=== PATIENT | male | born 1940 | race Caucasian/White ===

== ENCOUNTER → 2017-12-05 11:14 | Outpatient (BNVA) | payer MEDICARE, SELFPAY | PROVIDERS: Visit Provider Internal Medicine Cardiovascular Disease | DX: I48.2 Chronic atrial fibrillation (principal); I42.9 Cardiomyopathy, unspecified; I10 Essential (primary) hypertension; I34.0 Nonrheumatic mitral (valve) insufficiency; R06.02 Shortness of breath; Z79.01 Long term (current) use of anticoagulants; J44.9 Chronic obstructive pulmonary disease, unspecified; Z87.891 Personal history of nicotine dependence | CPT/HCPCS: 99214 ==

== ENCOUNTER → 2018-04-03 09:50 | Outpatient (BNVA) | payer MEDICARE, SELFPAY | PROVIDERS: Visit Provider Orthopaedic Surgery | DX: M17.0 Bilateral primary osteoarthritis of knee (principal); I10 Essential (primary) hypertension | CPT/HCPCS: 20610; 99211; 99213; J7325 ==

== ENCOUNTER → 2018-05-01 09:50 | Outpatient (BNVA) | payer MEDICARE, SELFPAY | PROVIDERS: PCP Family Medicine; Visit Provider Internal Medicine Cardiovascular Disease | DX: I48.91 Unspecified atrial fibrillation (principal); I42.9 Cardiomyopathy, unspecified; I12.9 Hypertensive chronic kidney disease with stage 1 through stage 4 chronic kidney disease, or unspecified chronic kidney disease; I34.0 Nonrheumatic mitral (valve) insufficiency; N18.9 Chronic kidney disease, unspecified; J44.9 Chronic obstructive pulmonary disease, unspecified; Z87.891 Personal history of nicotine dependence | CPT/HCPCS: 99213 ==

== ENCOUNTER → 2018-09-30 09:07 | Outpatient (BNVA) | payer MEDICARE, SELFPAY | PROVIDERS: PCP Family Medicine; Referring Provider Family Medicine; Visit Provider Orthopaedic Surgery | DX: M17.11 Unilateral primary osteoarthritis, right knee (principal); M17.12 Unilateral primary osteoarthritis, left knee | CPT/HCPCS: 20610; 99211; 99213; J7325 ==

== ENCOUNTER → 2018-12-04 08:43 | Outpatient (BNVA) | payer MEDICARE, SELFPAY | PROVIDERS: PCP Family Medicine; Referring Provider Family Medicine; Visit Provider Internal Medicine Cardiovascular Disease | DX: I48.2 Chronic atrial fibrillation (principal); I10 Essential (primary) hypertension; I34.0 Nonrheumatic mitral (valve) insufficiency; I42.9 Cardiomyopathy, unspecified; Z79.01 Long term (current) use of anticoagulants | CPT/HCPCS: 99214 ==

== ENCOUNTER → 2019-04-02 09:10 | Outpatient (BNVA) | payer MEDICARE, SELFPAY | PROVIDERS: PCP Family Medicine; Referring Provider Family Medicine; Visit Provider Student in an Organized Health Care Education/Training Program | DX: M17.12 Unilateral primary osteoarthritis, left knee (principal); M17.11 Unilateral primary osteoarthritis, right knee | CPT/HCPCS: 20610; 99214; J7325 ==

== ENCOUNTER → 2019-08-07 10:01 | Outpatient (BNVA) | payer MEDICARE, SELFPAY | PROVIDERS: PCP Family Medicine; Referring Provider Family Medicine; Visit Provider Internal Medicine Cardiovascular Disease | DX: I10 Essential (primary) hypertension (principal); I42.9 Cardiomyopathy, unspecified; E78.5 Hyperlipidemia, unspecified; I48.20 Chronic atrial fibrillation, unspecified | CPT/HCPCS: 99442; 99213 ==

== ENCOUNTER 2019-10-29 00:51 | Outpatient (CLI) | payer MEDICARE, SELFPAY ==
--- NOTE | 2019-10-29 08:15 | DI.US_ITS ---
EXAM: US LOWER EXTREMITY VENOUS LT CLINICAL HISTORY: LLE swelling, edema and pain, R/O DVT,R60.0. TECHNIQUE: Lower extremity venous ultrasound performed using grayscale, color-flow, and spectral Dop pler analysis. COMPARISON: No exams were available for comparison FINDINGS: The common femoral, femoral and popliteal veins demonstrate normal compressibility, augmentation, and color Doppler. The posterior tibial veins are patent. The saphenous vein appears free of thrombus. No Soto's cyst or hematoma is seen. IMPRESSION: No evidence of DVT. DATA REPOSITORY:
== END 2019-10-29 01:11 ==
PROVIDERS: PCP Family Medicine; Visit Provider Family Medicine
DX: R60.0 Localized edema (principal)
CPT/HCPCS: 93971

== ENCOUNTER → 2020-06-16 14:15 | Outpatient (BNVA) | payer MEDICARE, SELFPAY | PROVIDERS: PCP Family Medicine; Referring Provider Family Medicine; Visit Provider Internal Medicine Cardiovascular Disease | DX: I48.91 Unspecified atrial fibrillation (principal); Z79.01 Long term (current) use of anticoagulants; I42.9 Cardiomyopathy, unspecified; I34.0 Nonrheumatic mitral (valve) insufficiency | CPT/HCPCS: 99214 ==

== ENCOUNTER 2020-08-12 14:59 | Emergency (ER) | payer MEDICARE, SELFPAY ==
[2020-08-12] VITALS (20 sets, daily range): BP systolic 125–142; BP diastolic 80–93; PULSE 80–133; RESP 17–27; TEMP 36.7; O2SAT 96–97
--- NOTE | 2020-08-12 15:00 | RT.EKG_ITS ---
APPROVED REPORT Exam: Resting ECG Reason for Exam: afib, dizzy Patient Location: E HR:111 bpm ECG Measurements Heart Rate 111 AXIS CA [id number] P [id number] QRSd 144 QRS -44 QT 375 T 58 QTc 510 Conclusion Atrial fibrillation...? atrial activity Ventricular premature complex...V complex w/ short R-R interval RBBB and LAFB...QRSd >120mS, axis(-40,240)
--- NOTE | 2020-08-12 15:16 | ED.GENADUL_ITS ---
Discharge Plan Disposition Patient Disposition: HOME Condition: Stable Discharge Details Clinical Impression: Atrial fibrillation with RVR Primary Care Provider: Matthew Parsons ED Provider: Swapnil Edwards Home Meds and New Rx's Prescriptions: Continued triamcinolone acetonide 0.025 % cream 1 applic TP DAILY PRN (Reason: pruritis) Qty: 80 RF: 3 lisinopril 10 mg tablet 10 mg PO DAILY Qty: 90 RF: 3 oxycodone-acetaminophen 5-325 mg tablet 1 tab PO TID MDD 15 mg PRN (Reason: Pain) Qty: 84 RF: 0 oxycodone-acetaminophen 5-325 mg tablet 1 tab PO Q8H MDD 15 mg PRN (Reason: pain) Qty: 84 RF: 0 oxycodone-acetaminophen 5-325 mg tablet 1 tab PO Q8H MDD 15 mg PRN (Reason: pain) Qty: 84 RF: 0 oxycodone-acetaminophen 5-325 mg tablet 1 tab PO Q8H MDD 15 mg PRN (Reason: pain) Qty: 84 RF: 0 amoxicillin 875 mg tablet 875 mg PO BID 7 Days Qty: 14 RF: 0 docusate sodium [Dulcolax Stool Softener (dss)] 100 MG capsule 100 mg PO BID PRNRF: 0 carvedilol 25 mg tablet 25 mg PO BID Qty: 180 RF: 3 Eliquis 5 mg tablet 5 mg PO BID Qty: 180 RF: 3 torsemide 20 mg tablet 25 mg PO DAILY RF: 0 Discharge Instructions Instructions: A-fib (Atrial Fibrillation) (ED) Additional Instructions: your heart rate was high and you were given a medicine to lower it with good effect make sure you are staying hydrated follow up with your primary care provider within 1 week and take the antibiotics as prescribed if you feel more ill, have difficulty breathing or chest pain return to the emergency department Medical Decision Making 80 yo male with hx of afib on eliquis, htn, who comes in from his pcp's office with afib with rvr. He states he was seeing his pcp today because on Saturday he had episodes where he would become sweaty and shaky. He denies loss of consciousness and denies chest pain or shortness of breath. This lasted until Saturday and since then he states he was feeling fine and saw his pcp today for a check up after he had these symptoms and was found to be in afib with high rates so was sent here. He denies any pain or palpiations. He has noted increased redness and warmth to the left ear and on exam does have warm erythematous skin of the outer ear. NO drainage and no swelling of the mastoid area, was diagnosed with erysipelas by his pcp who prescribed amoxicillin and I agree with this diagnosis. He denies cough, abdomen pain, vomit. He appears well speaking fully, has normal lung sounds, soft abdomen and moving his extremities with good strength and CN II-XII are intact, he is noted to be in afib with rates ranging from 110-140 during my exam. Will try to control his heart rate with metoprolol as dilt causes him headaches. He has no chest pain or pressure so unlikely acs but will check troponin. No evidence of dvt on exam and no pleuritic pain or hypoxia so unlikely PE. xray unremarkable and labs show no significant abnormalities, probnp of 2000 but no clinical signs of chf and has been 1600 in the past, and is likely related to his afib with rvr. Mild leukocytosis of 13 but could be stress induced from the afib vs skin infection. He feels well and is requesting d/c. His heart rate is now in the 90's and is stable so feel outpatient management is reasonable. I did discuss return precautions with him and also advised to follow up with his pcp Differential Diagnosis Differential Diagnosis: afib with rvr, electrolyte abnormality, acs, erysipelas Medical Records Medical records reviewed: Yes I reviewed the patient's medical records. Imaging Data Radiologic Study: Attestation: I personally reviewed and interpreted this imaging study as follows: Imaging: X-Ray Lab Data Lab results reviewed: Yes I reviewed the patient's lab results. ECG Data Attestation: I personally reviewed and interpreted this ECG (s) as follows: Prior ECG tracings: available for review Interpretation: afib, rate of 111, qtc 510, rbbb, no acute st t wave ischemic findings HPI General Mode of arrival: ambulatory . Date/Time Provider Initiated Documentation: 08/12/20 15:02 . Limitations to Documentation: no limitations . Information obtained by: patient . History of Present Illness 80 year old M presents to the emergency department with the chief complaint of sent here because my heart rate is high, described as moderate, Patient reports no radiation. Patient started experiencing this unknown and it has been constant. No relieving factors improve symptom(s), No exacerbating factors reported . Patient notes denies chest pain and cough. Patient did receive the following treatments prior to arrival, none Related Data Home Medications Medication Instructions Recorded Confirmed docusate sodium [Dulcolax Stool 100 mg PO BID PRN tab-cap 07/02/13 08/12/20 Softener (dss)] lisinopril 10 mg tablet 10 mg PO DAILY #90 tab-cap 08/07/19 08/12/20 carvedilol 25 mg tablet 25 mg PO BID #180 tab 09/22/19 08/12/20 triamcinolone acetonide 0.025 % 1 applic TP DAILY PRN #80 gm 11/09/19 08/12/20 topical cream apixaban 5 mg tablet 5 mg PO BID #180 tab 05/05/20 08/12/20 oxycodone-acetaminophen 5 mg-325 1 tab PO Q8H PRN #84 tab MDD 15 mg 06/20/20 08/12/20 mg tablet oxycodone-acetaminophen 5 mg-325 1 tab PO Q8H PRN #84 tab MDD 15 mg 06/20/20 08/12/20 mg tablet oxycodone-acetaminophen 5 mg-325 1 tab PO Q8H PRN #84 tab MDD 15 mg 06/20/20 08/12/20 mg tablet oxycodone-acetaminophen 5 mg-325 1 tab PO TID PRN #84 tab MDD 15 mg 06/20/20 08/12/20 mg tablet amoxicillin 875 mg tablet 875 mg PO BID 7 Days #14 tab 08/12/20 08/12/20 torsemide 25 mg PO DAILY 08/12/20 08/12/20 Previous Rx's Medication Instructions Recorded lisinopril 10 mg tablet 10 mg PO DAILY #90 tab-cap 08/07/19 carvedilol 25 mg tablet 25 mg PO BID #180 tab 09/22/19 triamcinolone acetonide 0.025 % 1 applic TP DAILY PRN #80 gm 11/09/19 topical cream apixaban 5 mg tablet 5 mg PO BID #180 tab 05/05/20 oxycodone-acetaminophen 5 mg-325 1 tab PO Q8H PRN #84 tab MDD 15 mg 04/12/21 mg tablet oxycodone-acetaminophen 5 mg-325 1 tab PO Q8H PRN #84 tab MDD 15 mg 06/20/20 mg tablet oxycodone-acetaminophen 5 mg-325 1 tab PO Q8H PRN #84 tab MDD 15 mg 06/20/20 mg tablet oxycodone-acetaminophen 5 mg-325 1 tab PO TID PRN #84 tab MDD 15 mg 06/20/20 mg tablet amoxicillin 875 mg tablet 875 mg PO BID 7 Days #14 tab 08/12/20 Allergies Allergy/AdvReac Type Severity Reaction Status Date / Time celecoxib Allergy Unknown SKIN Verified 08/12/20 15:39 BREAKDOWN, RASH pantoprazole AdvReac Intermediate diarrhea Verified 08/12/20 15:39 diltiazem AdvReac Unknown HEADACHES Verified 08/12/20 15:39 Review of Systems All systems reviewed & are unremarkable except as noted in HPI and below Constitutional Constitutional: Denies chills, Denies fever(s) and Denies weakness Cardiovascular Cardiovascular: Denies chest pain and Denies dyspnea Respiratory Respiratory: Denies cough and Denies dyspnea Gastrointestinal Gastrointestinal: Denies abdominal pain, Denies nausea and Denies vomiting Musculoskeletal Musculoskeletal: Denies joint swelling Neurologic Neurologic: Denies weakness [facility] Medical History (Updated 08/12/20 @ 16:50 by Swapnil Edwards MD) Adjustment disorder, unspecified (06/25/16) Care Team: PCP & 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 Patient Goals: To keep on maintaining overall chronic pain for next year. Care Plan Given to Patient?: Yes. Treatment Goals: To continue to meet with PCP in regards to pain management and continue conversation with PCP about possibly tapering medication this year. Strengths/Resources:Spouse (Kimberly) and youngest son (Thai) Barriers/Challenges Assessments:None reported. Actions: To continue to take medications as prescribed and attend appts with PCP. Who's Responsible?: Pt takes medication by himself, but spouse picks up the medication for him at pharmacy. 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 Entation of both knees. The patient inquires whether or not a brace would be of help. I think a simple elastic knee sleeve such as a copper fit brace is most suitable to him. I would recommend an extra large size. He understands that he needs to avoid using the brace at nighttime so it does not cause swelling in the lower foot and leg Unspecified essential hypertension (03/11/93) 1993 Surgical History egd (02/29/16) CHRIS Saldivar Family History Mother , fluid in lungs at age 57. Diabetes Father , esophagus prob at age 84. No problems noted. Sister , CVA at age 70. No problems noted. Sister No problems noted. 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 Pets and animals: Yes Pets and animals: dog(s) What is your relationship status?: Panel score (0-1 are the most socially isolated patients): 1 What type of physical activity do you participate in: none Seatbelt use: always Water heater temp set <120 deg: Yes Working smoke detector in home: Yes Fire extinguisher in home: Yes Carbon monox detector in home: Yes Do you feel safe at home: Yes Exam Const General: no acute distress Orientation: alert HENMT Head: normal to inspection Ears: external ear abnormal General nose exam: external nose normal Mouth: moist mucous membranes Eyes General: appearance normal, both eyes and all related structures Neck Neck: normal visual inspection Resp Effort & Inspection: normal respiratory effort and able to speak in complete sentences Cardio Rate: tachycardic Skin General skin exam: no rashes or lesions noted Neuro General: patient alert and patient oriented x3 Extrem General: normal to inspection Psych Mental Status: mental status grossly normal Critical Care Time Critical Care Time Critical Care Time: Yes Total Critical Care Time: 45 (minutes) Attestation: time spenit initiating IV omid blockers in patient with afib with rvr, frequent reassessments and hemodynamic monitoring in patient with afib with rvr and potential to deteriorate at any time
[2020-08-12 15:27] LABS: Abs Immature Grans 0.07 10^3/uL (0.0-0.06); Absolute Basophil Count 0.07 10^3/uL (0.0-0.2); Absolute Eosinophil Count 0.22 10^3/uL (0.0-0.7); Basophils % 0.5; Eosinophils % 1.6; HCT 50.3 % (40.0-50.0); HGB 16.3 g/dL (13.5-17.5); Immature Grans % 0.5; MCH 30.8 pg (27.0-33.0); MCHC 32.4 % (32.0-36.0); MCV 94.9 fL (80-95); Monocytes % 11.6; Neutrophils % 76.8; Nucleated RBC 0 %; Platelet Count 203 10^3/uL (130-400); RDW 14.3 % (11.8-14.1); RDW-SD 50.4 fL; WBC 13.83 10^3/uL (4.4-10.8)
[2020-08-12 15:28] LABS: Absolute Lymphocyte Count 1.24 10^3/uL (1.2-3.4); Absolute Neutrophil Count 10.62 10^3/uL (1.2-6.7)
[2020-08-12] MEDS: Normal Saline 1,000 ML 1000 ML IV (15:38)
[2020-08-12] MEDS: Metoprolol 5 MG/5 ML VIAL IVP (15:39)
--- NOTE | 2020-08-12 15:45 | DI.RAD_ITS ---
Exam(s) XR PORTABLE CHEST AP EXAM: XR PORTABLE CHEST AP CLINICAL HISTORY: elevated heart rates TECHNIQUE: COMPARISON: CR CHEST 2 VIEWS PA,LAT from 12/28/2015 FINDINGS: The heart appears mildly enlarged although this may be due in part to the AP projection.. Lungs are clear and well expanded. No gross pleural effusion on this frontal film. IMPRESSION: No evidence of acute process, question mild cardiomegaly. RADIATION DOSE DELIVERED: Total DLP
[2020-08-12 15:48] LABS: ALT 22 U/L (16-63); AST 27 U/L (15-37); Albumin 3.6 g/dL (3.4-5.0); Alkaline Phosphatase 85 U/L (46-116); BUN 23 mg/dL (7-18); Bilirubin, Total 1.1 mg/dL (0.2-1.0); CREATININE 1.4 mg/dL (0.70-1.30); Calcium 9.4 mg/dL (8.5-10.1); Chloride 103 mmol/L (98-107); Estimated GFR 48.89 (mL/min/1.73m2); Glucose 100 mg/dL (74-106); NT-proBNP 2308 pg/mL (<300); Potassium 4.3 mmol/L (3.5-5.1); Sodium 142 mmol/L (136-145); TSH (W/Ref FT4) 1.47 uIU/mL (0.36-3.74); Total Protein 7.7 g/dL (6.4-8.2)
[2020-08-12 15:52] LABS: INR 1.1 (0.9-1.1); PTT Activated 29.6 sec (21.0-27.5); Prothrombin Time 11.1 sec (9.3-11.0)
[2020-08-12 16:02] LABS: Diff Comment Agrees w/ Instrument; RBC Morphology Normal
[2020-08-12] MEDS: Amoxicillin 875 MG TAB PO (16:03)
[2020-08-12 16:11] LABS: Troponin I < 0.05 ng/mL (<0.06)
--- NOTE | 2020-08-12 16:17 | DI.VRAD_ITS ---
PROCEDURE INFORMATION: Exam: XR Chest Exam date and time: 08/12/2020 3:59 PM Age: 80 years old Clinical indication: Other: Elevated heart rates TECHNIQUE: Imaging protocol: XR of the chest. Views: 1 view. COMPARISON: CR CHEST 2 VIEWS PA,LAT 12/28/2015 11:07 AM FINDINGS: Lungs: Unremarkable. No consolidation. Pleural spaces: Unremarkable. No pleural effusion. No pneumothorax. Heart/Mediastinum: Unremarkable. No cardiomegaly. Bones/joints: Degenerative changes in the spine. IMPRESSION: No acute finding. Dictated and Authenticated by: Kulwant Norris MD. Ordering:LAMONTE Kraft MD
[2020-08-15 11:02] LABS: Lyme Ab w Rflx to Lyme Confirm Negative (Negative)
[2020-08-16 03:58] LABS: Anaplasma phagocytophilum Negative (Negative); B. miyamotoi PCR Negative (Negative); Babesia divergens/MO-1 Negative (Negative); Babesia duncani Negative (Negative); Babesia microti Negative (Negative); Ehrlichia chaffeensis Negative (Negative); Ehrlichia ewingii/canis Negative (Negative); Ehrlichia muris eauclairensis Negative (Negative)
== END 2020-08-12 17:05 | disposition home or self-care (01) ==
PROVIDERS: Emergency Provider Emergency Medicine; PCP Family Medicine
DX: I48.91 Unspecified atrial fibrillation; I47.2 Ventricular tachycardia; Z79.01 Long term (current) use of anticoagulants
CPT/HCPCS: 36415; 80053; 87798; 93005; 96361; 96374; 99291; 71045; 83735; 83880; 84443; 84484; 85025; 85610; 85730; 86618; 93010

== ENCOUNTER → 2020-08-18 13:35 | Outpatient (BNVA) | payer MEDICARE, SELFPAY | PROVIDERS: PCP Family Medicine; Referring Provider Family Medicine; Visit Provider Internal Medicine Cardiovascular Disease | DX: I48.20 Chronic atrial fibrillation, unspecified (principal); I34.0 Nonrheumatic mitral (valve) insufficiency; I12.9 Hypertensive chronic kidney disease with stage 1 through stage 4 chronic kidney disease, or unspecified chronic kidney disease; I42.9 Cardiomyopathy, unspecified; N18.9 Chronic kidney disease, unspecified | CPT/HCPCS: 99214 ==

== ENCOUNTER 2020-11-29 00:04 | Outpatient (CLI) | payer MEDICARE, SELFPAY ==
--- NOTE | 2020-11-29 08:35 | DI.US_ITS ---
APPROVED REPORT EXAM: Comprehensive 2D, Doppler, and color-flow Echocardiogram Patient Location: Out-Patient Finisher Plate: Mayte Donato RDCS (AE) Indications: CARDIOMYOPATHY Other Information Study Quality: Adequate Conclusion Normal left ventricular wall thickness and chamber size. Estimated ejection fraction is 55%. There are no segmental wall motion abnormalities Normal right ventricular size and systolic function Both atria are normal in size The aortic valve is trileaflet without stenosis or regurgitation Mild mitral annular calcification. Trace mitral regurgitation Normal tricuspid valve with mild regurgitation. Estimated right ventricular systolic pressure is nor mal at 28 mmHg Normal pulmonic valve with trace regurgitation Dilated ascending aorta measuring 3.9 cm Wall motion Left Ventricle The left ventricle is normal size. The left ventricular systolic function is normal. The left ventric ular ejection fraction is within the normal range. There is normal left ventricular wall thickness. T here is normal LV segmental wall motion. There is no ventricular septal defect visualized. LVEF is 55 %. Right Ventricle The right ventricle is normal size. The right ventricular systolic function is normal. The RVSP is 27 .7 mmHg. Atria The left atrium size is normal. The right atrium size is normal. The interatrial septum is intact wit h no evidence for an atrial septal defect. Aortic Valve Aortic valve is trileaflet. There is no aortic valvular stenosis. No aortic regurgitation is present. Mitral Valve Mild mitral annular calcification. No evidence of mitral valve stenosis. Trace mitral regurgitation. Tricuspid Valve The tricuspid valve is normal in structure. There is no tricuspid valve stenosis. Mild tricuspid regu rgitation. Pulmonic Valve The pulmonary valve is normal in structure. There is no pulmonic valvular stenosis. Trace pulmonic re gurgitation. Great Vessels The aortic root is normal in size. The ascending aorta is moderately dilated. Aortic arch is not well visualized. IVC is normal in size and collapses >50% with inspiration. Pericardium There is no pericardial effusion. 2D Dimensions IVSD d PLAX 1.04 cm M: 0.6-1.2 LV Vol A2C d MOD 80.3 mL LVPW d PLAX 1.02 cm M: 0.6 - 1.2 LV Vol A4C d MOD 84.7 mL LVID d PLAX 4.53 cm M: 4.2 - 5.8 LA vol/ BSA A2C s A-L 23.1 mL/m2 LVDs 3.25 cm M: 2.5 - 4.0 LA vol/ BSA A4C s A-L 20.3 mL/m2 Ao Root d 3.33 cm M: 3.1 - 3.7 LA Vol/ BSA Biplane s A-L 23.9 mL/m2 RA Area A4C 19.83 cm2 LA Area A4C s MOD 16.92 cm2 RA Vol/ BSA A4C s A-L 23.6 mL/m2 LA Area A2C s MOD 19.94 cm2 Ao Asc Diam d 3.90 cm M: 2.6 - 3.4 LV EF A4C MOD 55.4 % LV EF Teichholz 54.6 % LV EF A2C MOD 55.6 % LVEF (Roberson's) 57.67 % M: 52 - 72 LV EF Biplane MOD 57.7 % LV Volume 62.90 mL M: 62 - 150 SV 50.10 mL LV Volume Index 28.20 mL/m2 M: 34 - 74 SV Index 22.45 mL/m2 LV Vol Biplane MOD 86.9 mL FS 28.15 % M-Mode TAPSE 1.90 cm (M/F) >1.7 LV Diastology MV E' medial 0.105 (>0.07 m/s) MV E Vmax 0.89 (0.4-1.3 m/s) LV E/e MED 8.45 (<14) MV E' lateral 0.109 (>0.1 m/s) LV E/e LAT 8.15 (<14) MV E/E' medial 8.47 MV E/E' lateral 8.16 Aortic Valve LVOT Area 3.11 cm2 AoV Area Vmax 1.99 cm2 LVOT Vmax 0.83 m/s AoV Area/ BSA (Vmax) 0.89 cm2/m2 LVOT Mean Gideon. 0.58 m/s RAE Mean Gideon. 1.81 cm2 LVOT Peak Grad 2.8 mmHg RAE Mean Gideon. Index 0.81 cm2/m2 LVOT Mean Grad 1.5 mmHg LVOT VTI 0.144 m LVOT Diam s 1.95 cm AoV Vmax 1.30 m/s Velocity Ratio 0.63 AoV Mean Gideon. 1.00 m/s AoV Peak Grad 6.8 mmHg LVOT SV 44.85 mL AoV Mean Grad 4.2 mmHg AoV VTI 0.265 m AoV Area VTI 1.69 cm2 AoV Area/ BSA (VTI) 0.76 cm/m2 Mitral Valve MV DT 169 (160-240 msec) MV PHT 49 msec MV Area PHT 4.48 cm2 MV VTI 0.225 m MV Area VTI 2.00 (4.0-6.0 cm2) Pulmonary Valve PV Vmax 0.71 (0.5-1.5 m/s) RVOT Peak Gr. 1.48 mmHg PV Peak Grad 2.0 mmHg RVOT Mean Gr. 0.65 mmHg PV Mean Grad 1.3 mmHg RVOT VTI 0.090 m PV VTI 0.148 m RVOT Vmax 0.61 m/s Tricuspid Valve TR Peak Grad 24.6 mmHg TR Vmax 2.48 m/s RA Pressure 3.00 mmHg RVSP (TR) 27.7 mmHg
== END 2020-11-29 00:24 ==
PROVIDERS: PCP Family Medicine; Visit Provider Internal Medicine Cardiovascular Disease
DX: I42.9 Cardiomyopathy, unspecified (principal); I77.812 Thoracoabdominal aortic ectasia
CPT/HCPCS: 36415; 80048; 80061; 93306; 84550

== ENCOUNTER 2020-11-29 01:16 | Outpatient (CLI) | payer MEDICARE, SELFPAY ==
[2020-11-29 09:36] LABS: Calculated LDL 91 mg/dL (<100); Cholesterol 155 mg/dL (<200); HDL Cholesterol 42 mg/dL (40-60); Triglyceride 112 mg/dL (<150)
[2020-11-29 10:47] LABS: Uric Acid 10.8 mg/dL (3.5-7.2)
[2020-11-29 11:46] LABS: BUN 15 mg/dL (7-18); CREATININE 1.4 mg/dL (0.70-1.30); Calcium 8.6 mg/dL (8.5-10.1); Chloride 104 mmol/L (98-107); Estimated GFR 48.89 (mL/min/1.73m2); Glucose 120 mg/dL (74-106); Sodium 143 mmol/L (136-145)
== END 2020-11-29 01:17 | disposition home or self-care (01) ==
LOC: LBO 01:16
PROVIDERS: PCP Family Medicine; Visit Provider Internal Medicine Cardiovascular Disease
DX: I10 Essential (primary) hypertension (principal); I48.91 Unspecified atrial fibrillation; I42.9 Cardiomyopathy, unspecified; I34.0 Nonrheumatic mitral (valve) insufficiency; M79.89 Other specified soft tissue disorders; N18.9 Chronic kidney disease, unspecified
CPT/HCPCS: 36415; 80048; 80061; 84550

== ENCOUNTER → 2020-12-20 08:55 | Outpatient (BNVA) | payer MEDICARE, SELFPAY | PROVIDERS: PCP Family Medicine; Referring Provider Family Medicine; Visit Provider Internal Medicine Cardiovascular Disease | DX: I48.21 Permanent atrial fibrillation (principal); I10 Essential (primary) hypertension; Z79.01 Long term (current) use of anticoagulants | CPT/HCPCS: 99213 ==

== ENCOUNTER → 2021-06-20 08:54 | Outpatient (BNVA) | payer MEDICARE, SELFPAY | PROVIDERS: PCP Family Medicine; Visit Provider Internal Medicine Cardiovascular Disease | DX: I48.21 Permanent atrial fibrillation (principal); I87.2 Venous insufficiency (chronic) (peripheral); Z79.01 Long term (current) use of anticoagulants; I10 Essential (primary) hypertension | CPT/HCPCS: 99214; 99213 ==

== ENCOUNTER → 2021-12-19 08:50 | Outpatient (BNVA) | payer MEDICARE, SELFPAY | PROVIDERS: PCP Family Medicine; Referring Provider Family Medicine; Visit Provider Internal Medicine Cardiovascular Disease | DX: I87.2 Venous insufficiency (chronic) (peripheral) (principal); I10 Essential (primary) hypertension; Z79.01 Long term (current) use of anticoagulants; I48.21 Permanent atrial fibrillation | CPT/HCPCS: 99214 ==

== ENCOUNTER 2022-07-24 08:15 | Outpatient (CLI) | payer MEDICARE, SELFPAY ==
--- NOTE | 2022-07-24 08:15 | RT.EKG_ITS ---
APPROVED REPORT Exam: Resting ECG Reason for Exam: afib Patient Location: O HR:135 bpm ECG Measurements Heart Rate 135 AXIS PA [id number] P [id number] QRSd 142 QRS -35 QT 372 T 25 QTc 558 Conclusion Atrial fibrillation...? atrial activity Low voltage Right bundle branch block...QRSd>120, terminal axis(90,270)
== END 2022-07-24 08:16 | disposition home or self-care (01) ==
LOC: DI.CARD 08:15
PROVIDERS: PCP Family Medicine; Visit Provider Internal Medicine Cardiovascular Disease
DX: I48.91 Unspecified atrial fibrillation (principal)
CPT/HCPCS: 93010

== ENCOUNTER → 2022-07-24 08:58 | Outpatient (BNVA) | payer MEDICARE, SELFPAY | PROVIDERS: PCP Family Medicine; Referring Provider Family Medicine; Visit Provider Internal Medicine Cardiovascular Disease | DX: I11.0 Hypertensive heart disease with heart failure (principal); I48.21 Permanent atrial fibrillation; I50.9 Heart failure, unspecified; I87.2 Venous insufficiency (chronic) (peripheral); Z79.01 Long term (current) use of anticoagulants | CPT/HCPCS: 93005; 99214 ==

== ENCOUNTER → 2022-07-31 10:16 | Outpatient (BNVA) | payer MEDICARE, SELFPAY | PROVIDERS: PCP Family Medicine; Referring Provider Family Medicine; Visit Provider Internal Medicine Cardiovascular Disease | DX: I11.0 Hypertensive heart disease with heart failure (principal); I50.9 Heart failure, unspecified; I42.9 Cardiomyopathy, unspecified; I48.91 Unspecified atrial fibrillation; Z79.01 Long term (current) use of anticoagulants | CPT/HCPCS: 99214 ==

== ENCOUNTER 2022-08-13 10:34 | Inpatient (IN) | payer MEDICARE, SELFPAY ==
[2022-08-13] VITALS (20 sets, daily range): BP systolic 102–142; BP diastolic 69–102; PULSE 71–94; RESP 7–21; TEMP 36.5–36.7; O2SAT 96–99
--- NOTE | 2022-08-13 | DI.US_ITS ---
Exam(s) US EXTREMITY VENOUS BI EXAM: US EXTREMITY VENOUS BI CLINICAL HISTORY: BLE edema, concern for DVT. TECHNIQUE: Bilateral lower extremity venous ultrasound performed using grayscale, color-flow, and sp ectral Doppler analysis. COMPARISON: No exams were available for comparison FINDINGS: The right common femoral, femoral and popliteal veins demonstrate normal compressibility, augmentatio n, and color Doppler. The posterior tibial and peroneal veins are patent. The saphenofemoral junctio n is unremarkable. There is no evidence of a Soto's cyst. There is edema seen in the soft tissues. The left common femoral, femoral and popliteal veins demonstrate normal compressibility, augmentation , and color Doppler. The posterior tibial and peroneal veins are patent. The saphenofemoral junction is unremarkable. There is no evidence of a Soto's cyst. There is edema seen in the soft tissues. IMPRESSION: 1. No evidence of a right lower extremity DVT. 2. No evidence of a left lower extremity DVT. DATA REPOSITORY:
--- NOTE | 2022-08-13 10:30 | RT.EKG_ITS ---
APPROVED REPORT Exam: Resting ECG Reason for Exam: SOB Patient Location: E HR:89 bpm ECG Measurements Heart Rate 89 AXIS OH [id number] P [id number] QRSd 153 QRS -31 QT 433 T 21 QTc 527 Conclusion Atrial fibrillation...V-rate 76-101, irreg A-activity Right bundle branch block...QRSd>120, terminal axis(90,270)
--- NOTE | 2022-08-13 10:58 | W.ED.GENAD ---
Discharge Plan Disposition Patient Disposition: Admit to [facility] Condition: Serious Discharge Details Clinical Impression: Anemia, MEDARDO (acute kidney injury), Atrial fibrillation, CHF exacerbation Admit Date/Time: 08/13/22 14:19 Admit Provider: Ivana Lucero Attending Provider: Ivana Lucero Primary Care Provider: Matthew Parsons ED Provider: Lou Panda Discharge Data Discharge Date/Time-TO BE ENTERED AT DEPARTURE: 08/13/22 15:02 Medical Decision Making Patient is a pleasant 82 year old male, accompanied by his , with [facility] signficant for CHF, A-fib, hypertension, cardiomyopathy, peripheral venous insufficiency, chronic anticoagulation, presenting today with chief complaint of lower extremity edema. He reports has been worsening for the past 2 weeks. He is chronically on torsemide and has gone from 20 mg twice daily to 30 mg twice daily. Despite this, has continued to have increasing swelling to so that now he is having difficulty putting on shoes or ambulating. He denies feeling short of breath at this time. He denies any chest pain. Denies any abdominal pain. Of note, patient's also reports that she did recently stop his Lyrica as he was having hallucinations. On exam, patient appears nontoxic. He is resting comfortably. No respiratory distress. His lungs are clear.Abdomen is benign. No appreciable ascites. He has significant lower extremity edema bilaterally with no calf tenderness. We will give IV Lasix. Has been taking 60 without relief, will give 80 IV Unable to find previous echo. EKG obtained, patient in A-fib with a right bundle which appears to be old. No acute ischemic etiology appreciated. I have low suspicion for ACS patient not been having any chest discomfort or exertional shortness of breath outside of his baseline. Patient denies any dietary changes but is driving this. Will obtain labs, in particular concerned about kidney and liver function. We will also obtain BNP for further evaluation of CHF exacerbation. Labs reviewed, patient is anemic with Hgb of 11.9, this is new since his last blood work in 2020 at which time it was 16.2. CMP signficant for BUN of 114, creatinine 10.8, up from 1.4 in 2020. BNP elevated at 7396. FINDINGS: The heart appears mildly enlarged although this may be due in part to the AP projection..? Lungs are clear and well expanded.? No gross pleural effusion on this frontal film. IMPRESSION: No evidence of acute process, question mild cardiomegaly. Concern for cardiorenal syndrome. Consulted with hospitalist regarding admission. Hospitalist concerned that patient needs a right and left-sided heart cath. Patient has not had any chest pain and troponin is negative. She advised transferring patient to higher level of care. Consulted with [facility] who advised beds are quite tight but I will be able to speak with cardiology. We will also consult with [facility]. [facility] is also full. Had ginette discussion with patietn and . He does not want to be transferred, does not even want to go to local higher level of care. He is aware that we do not have the necessary team's should he decompensate further with his cardiorenal syndrome. He would prefer to be DNR/DNI, but kept as comfortable is agreeable to admission here but goal is to be able to return home As possible.. He and his have not set up COLST forms but he is interested in doing so now. He does not want to be transferred to outside facility but is agreeable to staying here for medical management. Consulted with Dr. Parr, she advised she will consult. Encouraged to continue to monitor I&Os. Spoke with cardiology at [facility], she recommends conintuation of diuresis. Recomends echo while inpatient. Consulted with hospitalist who is already been in touch with Dr. Napoles. She agrees to admitting the patient. Patient has had 1900 out so far after the IV diuresis given when he first came in. Catheter in place to allow for easier BLU. Patient and in agreement with this plan. All his questions and concerns were addressed. HPI General Date/Time Provider Initiated Documentation: 08/13/22 10:35. Limitations to Documentation: no limitations. Information obtained by: patient, family (), RN notes reviewed and old records reviewed. History of Present Illness 82 year old M presents to the emergency department with the chief complaint of BLE edema, described as severe and similar to prior episodes (worse than typical but has had history of edema), Quality is described as other (denies any pain), and is localized to the lower extremity. Patient reports no radiation. Patient started experiencing this week(s) (2) and it has been constant. No relieving factors improve symptom(s), No exacerbating factors reported . Patient notes no other symptoms.; denies chest pain, cough, diaphoresis, fever/chills, malaise, nausea/vomiting, shortness of breath (reports some chronic exertional SOB but no acute change in this) and weakness. Patient did receive the following treatments prior to arrival, other (torsemide) Related Data Home Medications Medication Instructions Recorded Confirmed docusate sodium 100 mg capsule 100 mg PO BID PRN 07/02/13 08/13/22 (Dulcolax Stool Softener (docusate)) allopurinol 100 mg tablet 100 mg PO DAILY #90 tabs 05/16/21 08/13/22 prednisone 20 mg tablet 20 mg PO DAILY PRN gout #7 tabs 05/16/21 08/13/22 carvedilol 25 mg tablet 25 mg PO BID #180 tabs 08/31/21 08/13/22 tamsulosin 0.4 mg capsule 0.4 mg PO DAILY #30 caps 04/16/22 08/13/22 torsemide 20 mg tablet 20 mg PO BID #180 tabs 07/24/22 08/13/22 oxycodone-acetaminophen 5 mg-325 1 tab PO TID PRN pain #84 tabs 07/31/22 08/13/22 mg tablet torsemide 10 mg tablet 10 mg PO BID #30 tabs 08/02/22 08/13/22 apixaban 2.5 mg tablet (Eliquis) 2.5 mg PO BID #60 tabs 08/16/22 calcium carbonate 500 mg calcium 1.25 g PO BID #0 tabs 08/16/22 (1,250 mg) tablet (Oyster Shell Calcium 500) cyanocobalamin (vitamin B-12) 500 1,000 mcg PO DAILY #0 tabs 08/16/22 mcg tablet (Vitamin B-12) lidocaine 5 % topical patch 2 patch topical Q24H #30 ea 08/16/22 polyethylene glycol 3350 17 gram 17 g PO DAILY #30 ea 08/16/22 oral powder packet potassium chloride 20 mEq 40 meq PO BID #10 tabs 08/16/22 tablet,extended release(part/cryst) (Klor-Con M) Previous Rx's Medication Instructions Recorded allopurinol 100 mg tablet 100 mg PO DAILY #90 tabs 05/16/21 prednisone 20 mg tablet 20 mg PO DAILY PRN gout #7 tabs 05/16/21 carvedilol 25 mg tablet 25 mg PO BID #180 tabs 08/31/21 tamsulosin 0.4 mg capsule 0.4 mg PO DAILY #30 caps 04/16/22 torsemide 20 mg tablet 20 mg PO BID #180 tabs 07/24/22 oxycodone-acetaminophen 5 mg-325 1 tab PO TID PRN pain #84 tabs 07/31/22 mg tablet torsemide 10 mg tablet 10 mg PO BID #30 tabs 08/02/22 apixaban 2.5 mg tablet (Eliquis) 2.5 mg PO BID #60 tabs 08/16/22 calcium carbonate 500 mg calcium 1.25 g PO BID #0 tabs 08/16/22 (1,250 mg) tablet (Oyster Shell Calcium 500) cyanocobalamin (vitamin B-12) 500 1,000 mcg PO DAILY #0 tabs 08/16/22 mcg tablet (Vitamin B-12) lidocaine 5 % topical patch 2 patch topical Q24H #30 ea 08/16/22 polyethylene glycol 3350 17 gram 17 g PO DAILY #30 ea 08/16/22 oral powder packet potassium chloride 20 mEq 40 meq PO BID #10 tabs 08/16/22 tablet,extended release(part/cryst) (Klor-Con M) Allergies Allergy/AdvReac Type Severity Reaction Status Date / Time celecoxib Allergy Unknown SKIN Verified 08/13/22 10:43 BREAKDOWN, RASH pantoprazole AdvReac Intermediate diarrhea Verified 08/13/22 10:43 gabapentin AdvReac Mild Skin Rash Verified 08/13/22 10:43 diltiazem AdvReac Unknown HEADACHES Verified 08/13/22 10:43 General Stated Complaint: Chest Pain NATA: 3 Review of Systems Constitutional Constitutional: Reports as per HPI, Denies chills, Denies fever(s), Denies headache(s) and Denies poor appetite ENT Ears, Nose, Mouth, and Throat: Denies dizziness and Denies headache(s) Cardiovascular Cardiovascular: Reports as per HPI Respiratory Respiratory: Reports as per HPI, Denies cough, Denies pain on inspiration and Denies pain with cough Gastrointestinal Gastrointestinal: Reports as per HPI, Denies abdominal pain, Denies diarrhea, Denies nausea and Denies vomiting Genitourinary Genitourinary: Denies system reviewed and no additional complaints, except as documented (denies change in urinary habits) and Reports other (reports normal urine output, not increasing with medications) Musculoskeletal Musculoskeletal: Reports as per HPI and Denies back pain Integumentary/Breasts Skin/Breast: Reports as per HPI and Denies rash Neurologic Neurologic: Reports as per HPI, Denies dizziness and Denies headache(s) PFSH All Active Problems (Updated 08/18/22 @ 10:19 by DERICK Blackman) MEDARDO (acute kidney injury) (Acute) CHF exacerbation (Acute) Gross hematuria (Acute) Urinary retention (Acute) MEDARDO (acute kidney injury) (Acute) Hyperbilirubinemia (Acute) Hypocalcemia (Acute) Elevated uric acid in blood (Acute) High anion gap metabolic acidosis (Acute) Anemia (Chronic) Acute renal failure due to urinary obstruction (Acute) Post herpetic neuralgia (Acute) Toe swelling (Acute) Mitral regurgitation (Chronic) Hypertension (Chronic) Cardiomyopathy (Acute) Osteoarthritis of knee (Acute) Tobacco dependence syndrome (Acute 09/17/11) Unspecified essential hypertension (Chronic 03/11/93) 1993 Primary osteoarthritis of both knees (Chronic) Plan is to continue [place] supplem follow-up with me in 6 months unless there is some intercurrent worsening of his symptomatology. Entation of both knees. The patient inquires whether or not a brace would be of help. I think a simple elastic knee sleeve such as a copper fit brace is most suitable to him. I would recommend an extra large size. 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), sciatica 07, djd pain (also Dreisbach); no NSAID's due to GI bleed (2015) Osteoarthritis of knee (Chronic) LEFT PATRIZIA; INJ DREISBACH; DJD Hyperlipidemia (Chronic 11/09/00) risk 25% 11/2000, patrizia smoking, low HDL; goal LDL<100 Esophagitis determined by endoscopy (Chronic 03/09/16) EGD 02/29/16; Melena on Apixaban Chronic anticoagulation (Chronic 10/15/16) Apixaban Atrial fibrillation (Chronic 12/10/11) H/O EPISODES LIKELY FOR 2 YRS; EF 52%, NL TSH; Elzbieta; noted 12/10/11 office, Apixaban 2016; EF 60% 11/2014 ECHO Surgical History egd (02/29/16) [place] Yariel H/O umbilical hernia repair Hx of appendectomy S/P tonsillectomy Family History Mother , fluid in lungs at age 57. Heart disease CHF Sister Stroke Social History Smoking/Tobacco Use Status: Former Tobacco Use Pack-years: 120 Tobacco: How many years used: 64 Smoking risk assessment performed?: Yes Alcohol Intake: never Drug use: Never Adopted: No Caregiver/Support person: No Foster care: No Household members: spouse Housing: apartment Number of Children: 5 number of grandchildren: 11 Communication Needs: None Education Level: college Do you need help understanding health information?: Never current occupation: [employer] Pets and animals: Yes Pets and animals: dog(s) Sexually active: No Do you think of yourself as: straight/heterosexual Current gender identity: male What is your relationship status?: How often do you talk on the phone with friends or family?: three or more times per week How often do you get together with friends or relatives?: never How often do you attend gnosticism or congregational services?: decline to answer Do you belong to any clubs or organized social groups?: no Panel score (0-1 are the most socially isolated patients): 2 What type of physical activity do you participate in: none Seatbelt use: sometimes Drive intox or ride w/intox shuttle driver: No Water heater temp set <120 deg: Yes Working smoke detector in home: Yes Fire extinguisher in home: Yes Carbon monox detector in home: Yes Do you feel safe at home: Yes Exam Const General: cooperative, comfortable, no acute distress, well developed and ill appearing chronically Nutritional Appearance: well nourished, obese and edematous (BLE) Orientation: alert, awake and oriented x3 HENMT Head: normal to inspection Ears: hearing grossly normal bilaterally Mouth: moist mucous membranes Chest Chest: normal inspection of the chest, normal palpation of entire chest wall and no crepitus Resp Effort & Inspection: normal respiratory effort, able to speak in complete sentences and no respiratory distress Auscultation: clear to auscultation bilaterally, no rales, no rhonchi and no wheezes Cardio Rate: regular rate Rhythm: regular rhythm Heart Sounds: S1 normal and S2 normal GI Inspection: normal to inspection, no edema, non-distended and obesity Palpation: soft, no hepatosplenomegaly, not firm, no guarding, not rigid, nontender and No ascites Auscultation: normal bowel sounds Back/Spine/Pelvis Back: no CVA tenderness Thoracic/Lumbar Spine: thoracic and lumbar spine normal to inspection Skin General skin exam: no rashes or lesions noted Trauma: no lacerations or abrasions Neuro General: patient alert, patient awake and patient oriented x3 Cognition: normal cognition Speech: speech normal Gait: other (come in wheelchair, up to bed without assistance but short distance) Extrem General: normal to inspection, capillary refill normal, no calf tenderness and edema Laterality: bilateral Psych Appearance: grossly normal and well kempt Mental Status: mental status grossly normal Speech and Movement: speech and movement normal Course Vital Signs Vital signs: Vital Signs Temperature 36.7 C 08/13/22 10:38 Pulse 91 H 08/13/22 10:38 Respiratory Rate 20 08/13/22 10:38 Blood Pressure 135/87 08/13/22 10:38 Pulse Oximetry 98 08/13/22 10:38 Temperature 36.7 C 08/13/22 10:38 Temperature Source Skin 08/13/22 10:38 Pulse 91 H 08/13/22 10:38 Respiratory Rate 20 08/13/22 10:38 Blood Pressure 135/87 08/13/22 10:38 Blood Pressure Position Sitting 08/13/22 10:38 Pulse Oximetry 98 08/13/22 10:38 Oxygen Delivery Method Room Air 08/13/22 10:38 Oxygen Flow Rate 0 08/13/22 10:38 Pain Level 5 08/13/22 10:38
[2022-08-13 11:12] LABS: Abs Immature Grans 0.05 10^3/uL (0.0-0.06); Absolute Basophil Count 0.06 10^3/uL (0.0-0.2); Absolute Eosinophil Count 0.11 10^3/uL (0.0-0.7); Absolute Lymphocyte Count 0.79 10^3/uL (1.2-3.4); Basophils % 0.5; Eosinophils % 0.9; HCT 36.4 % (40.0-50.0); HGB 11.9 g/dL (13.5-17.5); Immature Grans % 0.4; Lymphocytes % 6.2; MCH 31.2 pg (27.0-33.0); MCHC 32.7 % (32.0-36.0); MCV 95 fL (80-95); Monocytes % 9.4; Neutrophils % 82.6; Platelet Count 149 10^3/uL (130-400); RBC 3.82 10^6/uL (4.36-5.78); RDW 14.8 % (11.8-14.1); WBC 12.75 10^3/uL (4.4-10.8)
[2022-08-13 11:13] LABS: Absolute Neutrophil Count 10.53 10^3/uL (1.2-6.7)
[2022-08-13] MEDS: Furosemide 100 MG/10 ML VIAL 80 MG IVP (11:30)
[2022-08-13 11:35] LABS: ALT 7 U/L (16-63); AST 7 U/L (15-37); Albumin 3.2 g/dL (3.4-5.0); Alkaline Phosphatase 58 U/L (46-116); Anion Gap 17.8 mmol/L (3-11); Bilirubin, Total 1.2 mg/dL (0.2-1.0); CO2 22.2 mmol/L (21.0-32.0); Calcium 7.9 mg/dL (8.5-10.1); Chloride 99 mmol/L (98-107); Estimated GFR 4.35 (mL/min/1.73m2); Glucose 122 mg/dL (74-106); Magnesium 1.8 mg/dL (1.8-2.4); NT-proBNP 7396 pg/mL (<300); Potassium 4.2 mmol/L (3.5-5.1); Sodium 139 mmol/L (136-145); Troponin I < 50 ng/L (<or=60)
[2022-08-13 11:42] LABS: BUN 114 mg/dL (7-18)
[2022-08-13 11:43] LABS: CREATININE 10.8 mg/dL (0.70-1.30)
--- NOTE | 2022-08-13 12:46 | DI.RAD_ITS ---
Exam(s) XR CHEST 2V PA LATERAL EXAM: XR CHEST 2V PA LATERAL CLINICAL HISTORY: SOB, hx CHF TECHNIQUE: 2D digital imaging was performed of the chest. Two images were obtained. PA and lateral views were obtained. COMPARISON: CR CHEST 2 VIEWS PA,LAT from 12/28/2015 CR,XR XR PORTABLE CHEST AP from 08/12/2020 FINDINGS: MEDIASTINUM: Normal. HEART: Cardiomegaly. PULMONARY VASCULATURE: Normal. LUNGS: Clear. PLEURAL SPACE: No pleural effusion or pneumothorax. BONE:Within normal limits for the patient's age. OTHER FINDINGS:Normal. IMPRESSION: No acute pulmonary findings. DATA REPOSITORY: RADIATION DOSE DELIVERED:
--- NOTE | 2022-08-13 13:52 | W.PULMCC ---
General Date of Service Date of service: 08/13/22 Time of Service: 13:52 Reason for Admission to ICU: Renal Failure Assessment and Plan Assessment and plan (1) Acute renal failure due to urinary obstruction: Status: Acute (2) Leukocytosis: Status: Acute (3) Congestive heart failure: Status: Chronic (4) Anemia: Status: Chronic (5) High anion gap metabolic acidosis: Status: Acute (6) Lethargy: Status: Acute (7) Elevated uric acid in blood: Status: Acute (8) Hypocalcemia: Status: Acute (9) Hyperbilirubinemia: Status: Acute (10) Atrial fibrillation with RVR: Status: Acute Assessment and plan: This is an 82 yo being admitted to the ICU for obstructive renal failure. He had 2000cc urine empty after catheterization. I do agree he needs renal imaging and a CT has been ordered. I also agree with urology consultation. Now that the obstruction has been resolved with a catheter, I suspect his GFR will significantly improve. Recommendations Pulmonary: No acute concerns Cardiac: CHF - diuresis for negative fluid balance - cardiac function on POCUS today appearance preserved Afib with RVR - on AC Renal: Obstructive renal failure - Goyal catheter - strict I/O's - CT renal imaging - urology consultation - close electrolyte monitoring Anion gap metabolic acidosis - likely due to uremia - measure lactate level Elevated uric acid - remeasure, h/o gout - continue allopurinol Hypocalcemia - remeasure tomorrow I&O: Intake & Output 08/10/22 08/11/22 08/12/22 08/13/22 23:59 23:59 23:59 23:59 Weight 111.13 kg Daily Fluid Goal:: negative 1 L GI Nutrition: OK for diet Hyperbilirubinemia - no transaminase elevation - continue to monitor Infectious Disease: No infection suspected Hematologic: Leukocytosis - reactive - infection not suspected Anemia - continue to monitor - no acute concern Neurologic: Lethargy - due to uremia, will continue to monitor Endocrine: No acute concerns Lines: PIV Goyal Prophylaxis: on Eliquis Code Status: DNR/DNI Subjective Critical and life-threatening events over the past 24 hours: This is an 82 yo who presented to the ED for chest pain, found to be in renal failure. I was called as hospitalist did not want to admit due to lack of HD services. Patient is DNR and refuses dialysis. I mentioned it would be appropriate to admit the patient as long as patient understood that without HD he may not survive. Upon further discussion with ED UOP was unknown and patient did not have Goyal, so I requested Goyal be placed. I then discussed the case with Dr. Lucero and we developed a plan if this was found to be cardiorenal. Dr. Lucero updated me shortly after this that a Goyal was placed and the patient was retaining 2000cc urine. Dr. Lucero states she would consult Urology. He states that he has not urinated in 2-3 days and has notices a significant amount of lethargy during this period as well. He states that his legs have been swelling moreso that usual in the last week as well. Exam Narrative Exam Narrative: Gen: NAD, normal respiratory effort, well-nourished HENT: PERRL, nasal turbinates normal without erythema or inflammation, moist oral mucosa, Mallampati 2, No LAD or JVD Chest: No respiratory distress, normal appearance of chest, clear to auscultation bilaterally, no crackles or wheezes, normal inspiratory effort Heart: regular rate and rhythym, no murmurs, rubs or gallops Abdomen: Non-distended, soft, non tender Extremities: No clubbing, 3+ edema up through hips, cyanosis, rashes Neuro: AAOx3 , non focal Psych: cooperative, appropriate mental affect Most Recent VS/Results Last Vital Signs Temp 36.7 C 08/13/22 10:38 Pulse 88 08/13/22 11:53 Resp 18 08/13/22 11:53 BP 142/88 H 08/13/22 11:53 Pulse Ox 99 08/13/22 11:53 Laboratory Results - last 24 hr 08/13/22 08/13/22 08/13/22 11:00 11:00 11:00 WBC 12.75 H RBC 3.82 L Hgb 11.9 L Hct 36.4 L MCV 95 MCH 31.2 MCHC 32.7 RDW 14.8 H Plt Count 149 MPV 10.0 Immature Gran % 0.4 Neutrophils % 82.6 Lymphocytes % 6.2 Monocytes % 9.4 Eosinophils % 0.9 Basophils % 0.5 Nucleated RBC % 0.0 Absolute Neutrophils 10.53 H Absolute Lymphocytes 0.79 L Absolute Monocytes 1.20 H Absolute Eosinophils 0.11 Absolute Basophils 0.06 Sodium 139 Potassium 4.2 Chloride 99 Carbon Dioxide 22.2 Anion Gap 17.8 H BUN 114 H* Creatinine 10.8 H* Est GFR (CKD-EPI 2020) 4.35 Glucose 122 H Calcium 7.9 L Magnesium 1.8 Total Bilirubin 1.2 H AST 7 L ALT 7 L Alkaline Phosphatase 58 Troponin I < 50 NT-Pro-B Natriuret Pep Cancelled 7396 H Total Protein 7.0 Albumin 3.2 L Review of Systems All systems reviewed & are unremarkable except as noted in HPI and below Time spent with patient Time spent in Critical Care: 75 Time spent in Critical care included: Performing procedures not included in c.c time, Coordination of care, Chart review, Documenting critically ill care, Time at immediate bedside, Discussing critically ill care with other medical staff and Discussing care with family members Pocus Exam Limited Cardiac Exam DATE OF EXAM: 08/13/22 TIME OF EXAM: 16:00 PROVIDER THAT PERFORMED THE STUDY: Liliya Armenta IS THIS A REPEAT EXAM DURING THIS ENCOUNTER: no REASON FOR EXAM: Congestive heart failure and Evaluation of LV function VISUALIZED STRUCTURES: four chambers, left atrium, left ventricle, LVOT, right atrium, right ventricle, aortic valve, mitral valve, Interventricular septum and IVC VIEW OBTAINED: Apical 4-Chamber, Parasternal long-axis, Parasternal short-axis and Subxiphoid PERTINENT FINDINGS/IMPRESSION: Pericardial effusion (anterior, trace vs fat pad) and Plethoric IVC; No LV dysfunction, No RV dilation and No RV dysfunction Exam complete
--- NOTE | 2022-08-13 14:00 | DI.CT_ITS ---
Exam(s) CT RENAL COLIC WO EXAM: CT RENAL COLIC WO CLINICAL HISTORY: cardiorenal syndrome. TECHNIQUE: Imaging Protocol: Axial computed tomography images with coronal and sagittal reformatted images were created and reviewed. COMPARISON: No exams were available for comparison FINDINGS: The examination is limited due to patient motion artifact. ABDOMEN: Lung Bases: Cardiomegaly. There is a small hiatal hernia. Gynecomastia. Liver: Normal density. No measurable mass. Gallbladder and biliary tract: Cholelithiasis. No biliary ductal dilatation. Pancreas: Normal density, no abnormal calcifications or inflammatory process. Spleen: Normal. Kidneys: Normal size, contour and axis.No evidence of nephrolithiasis. There is mild distension of t he left renal collecting system which may represent a recently passed stone. There are hypodense cor tical lesions on the right kidney. These may represent cysts but are indeterminate on this noncontra st examination. Adrenal glands: No mass is seen. Lymph nodes: Within normal limits. Abdominal Aorta: Abdominal portion non-dilated. Atherosclerosis. PELVIS: Bladder:There is a Goyal catheter in place. There is thickening of the wall of the urinary bladder. Air is seen within the urinary bladder likely reflecting recent catheterization. There is a 4 mm bl adder stone. Bowel: There is diverticulosis, but no evidence of acute diverticulitis. There is no evidence of bow el obstruction. There is mild thickening of the wall of the jejunum. No evidence of appendicitis. Peritoneal cavity: No ascites, collection or mesenteric inflammatory response. No free air. Reproductive organs: There is prostatomegaly. Bones: Within normal limits. Multilevel degenerative changes are present resulting in multilevel cent ral spinal canal and neural foraminal stenosis. The findings are most marked at the L4-5 and L5-S1 d isc levels. Soft Tissues: Bilateral fat containing inguinal hernias. IMPRESSION: 1. Mild thickening of the wall of the jejunum suggesting an enteritis. 2. Mild distention of the left ureter. No ureterolithiasis or nephrolithiasis is seen. This may ref lect a recently passed stone or noncalcified stone. Note is made of a stone within the urinary bladd er. 3. Diffuse thickening of the wall of the urinary bladder. Cystitis cannot be excluded. Underdistent ion or chronic bladder outlet obstruction should also be considered. 4. Prostatomegaly. 5. Colonic diverticulosis, but no evidence of acute diverticulitis. 6. Cholelithiasis. No biliary ductal dilatation. 7. Indeterminate hypodense right renal cortical nodules. Correlation with ultrasound or MRI is recom mended. 8. Findings were discussed with Mirtha Sales at 4:26 p.m. on 08/13/2022. RADIATION DOSE DELIVERED: 1,405.94mGy.cm Total DLP DATA REPOSITORY: All CT scans at this facility are submitted to the National Radiology Data Registry (NRDR) Dose Index Registry (DIR) with the [employer] (ACR). RADIATION OPTIMIZATION: All CT scans at this facility use at least one of these dose optimization te chniques: automated exposure control; mA and/or kV adjustment per patient size (includes targeted exa ms where dose is matched to clinical indication); or iterative reconstruction.
--- NOTE | 2022-08-13 14:44 | W.PM.HP.N ---
Date of service: 08/13/22 Time of Service: 14:49 Assessment and Plan Assessment and plan (1) MEDARDO (acute kidney injury): Status: Acute Assessment and plan: Suspect that this is multifactorial, but at a minimum it has an obstructive component due to urinary retention with >2,000 cc out upon insertion of the johns catheter. CT abdomen/plevis with diffuse thickening of the bladder wall c/w chronic bladder outlet obstruction. He does have L ureteral distention and evidence of a bladder stone. There is prostatomegaly. Urology consulted. Continue flomax. Obtain FEUrea. Will replete calcium. Does have hyperphosphatemia. K is 4.2, which is reassuring. Uric acid is elevated - on allopurinol. Will hold off of further diuresis at this time. Monitor Cr, I/Os, daily weights. I expect that a large portion of this MEDARDO will be reversible. (2) Urinary retention: Status: Acute Assessment and plan: As above. The patient is already on flomax. Continue. I suspect that his urinary retention may be related to obstruction/prostatomegaly - had an elevated PSA in 2010. But he is also on opioids for back pain which may in fact have been due to obstructive uropathy and the opioids may have been contributing to urinary retention, thus creating a self-fueling cycle. Also, he is constipated. I discussed the issue of opioids with the patient, and he is willing to come off of them. I will start to taper the oxycodone. I will also write him for a bowel regimen. It will be interesting to see if the patient's back pain resolves now that his urinary tract has been decompressed. (3) High anion gap metabolic acidosis: Status: Acute Assessment and plan: Suspect this is due to above and it should improve with treatment of MEDARDO. This is compensated. pH is 7.33. Lactate is 1.6. (4) Cardiomyopathy: Status: Acute Assessment and plan: Await echo. LVEF was preserved in 2020 with no evidence of R-sided failure per echo in our system. Qualifiers: Cardiomyopathy type: unspecified Qualified Code(s): I42.9 - Cardiomyopathy, unspecified (5) Congestive heart failure: Status: Chronic Assessment and plan: As above (6) Hyperbilirubinemia: Status: Acute Assessment and plan: Will trend. Suspect that some of this could be due to passive fluid congestion given the MEDARDO/obstructive uropathy. Will obtain hepatitis studies, however. (7) Hypocalcemia: Status: Acute Assessment and plan: Replete (8) Elevated uric acid in blood: Status: Acute Assessment and plan: Has a h/o gout. I doubt that this is due to tumor lysis syndrome. Continue allopurinol. (9) Leukocytosis: Status: Acute Assessment and plan: I am not sure if the patient has recently taken prednisone. Could be reactive due to acute urinary retention. He is certainly at risk of a UTI. Obtain a UA. Obtain a procalcitonin. Would not start antibiotics at this time. (10) Anemia: Status: Chronic Assessment and plan: Obtain anemia studies, including hematest, iron/TIBC, ferritin, B12/folate. (11) Atrial fibrillation: Status: Chronic Assessment and plan: Rate controlled. Adjust apixaban to renal dosing. Qualifiers: Atrial fibrillation type: permanent Qualified Code(s): I48.2 - Chronic atrial fibrillation (12) DVT prophylaxis: Status: Acute Assessment and plan: On therapeutic apixaban (13) Discharge planning issues: Status: Acute Assessment and plan: DNR/DNI Admit to the ICU with low threshold to downgrade to the medical surgical floor C/s palliative care C/s PT. Discussed with Dr Armenta. Total Critical Care Time 60 minutes. History of Present Illness History of Present Illness Chief Complaint: leg swelling, poor UOP Narrative: Mr Rain is an 82 year old male with PMHx of CHFpEF/cardiomyopathy (patient states he is unaware of this diagnosis), Afib on anticoagulation with eliquis, chronic lower extremity edema, CKD stage III (patient unaware of this diagnosis), HTN (unaware of diagnosis), gout, prostatomegaly (unaware of diagnosis), chronic lower back pain on oxycodone-acetaminophen, who presented to [facility] ED today c/o acute on chronic lower extremity edema, acutely worse over the last two weeks, despite his PCP increasing the torsemide dose from 20 mg BID to 30 mg BID. The patient has still be making urine at home, but reports that only dribbles came out, and for the last couple of weeks he had to start wearing a diaper became of episodes of incontinence. He states that he has gained 24 lbs in 2 weeks. He does admit that he was told to go to the ED when he saw Dr Lomeli in the office on 07/31/22 so that he could get intravenous diuretics, but at the time he chose not to go. He denies fevers, CP, SOB, orthopnea/PND, cough. His last BM was 4 days ago - this is not normal for him. The leg swelling became so severe that he has had a hard time bending down or walking. He has been weak. A couple of weeks ago he was noted to be hallucinating, but this stopped when his lyrica was discontinued. His son called his PCP's office due to progressively worsening swelling and the instructions were to bring Mr Rain to the hospital. On evaluation by the ED, the patient did not require supplemental oxygen. He was found to have severe bilateral pitting edema. His chemistry revealed a Cr of 10.8 with a carbon dioxide of 22.2 and a potassium of 4.2. His uric acid is 12.0. CXR showed no CHF. The patient verbalized that he did not want to be transferred to a different facility, was not interested in hemodialysis, and wanted to be DNR/DNI. A trial of IV furosemide was attempted and a johns catheter was ordered wiith >2,000 cc coming out upon insertion. A hospitalist admission was requested. Review of Systems All systems reviewed & are unremarkable except as noted in HPI and below PFSH All Active Problems (Updated 08/13/22 @ 17:13 by Ivana Lucero MD) Discharge planning issues (Acute) DVT prophylaxis (Acute) Urinary retention (Acute) MEDARDO (acute kidney injury) (Acute) Hyperbilirubinemia (Acute) Hypocalcemia (Acute) Elevated uric acid in blood (Acute) High anion gap metabolic acidosis (Acute) Anemia (Chronic) Leukocytosis (Acute) Acute renal failure due to urinary obstruction (Acute) Congestive heart failure (Chronic) Post herpetic neuralgia (Acute) Toe swelling (Acute) Atrial fibrillation with RVR (Acute) Mitral regurgitation (Chronic) Hypertension (Chronic) Cardiomyopathy (Acute) Osteoarthritis of knee (Acute) Tobacco dependence syndrome (Acute 09/17/11) Unspecified essential hypertension (Chronic 03/11/93) 1993 Primary osteoarthritis of both knees (Chronic) Plan is to continue Visco supplem follow-up with me in 6 months unless there is some intercurrent worsening of his symptomatology. Entation of both knees. The patient inquires whether or not a brace would be of help. I think a simple elastic knee sleeve such as a copper fit brace is most suitable to him. I would recommend an extra large size. 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), sciatica , djd pain (also Dreisbach); no NSAID's due to GI bleed (2015) Osteoarthritis of knee (Chronic) LEFT PATRIZIA; INJ DREISBACH; DJD Hyperlipidemia (Chronic 11/09/00) risk 25% 11/2000, patrizia smoking, low HDL; goal LDL<100 Esophagitis determined by endoscopy (Chronic 03/09/16) EGD 02/29/16; Melena on Apixaban Chronic anticoagulation (Chronic 10/15/16) Apixaban Atrial fibrillation (Chronic 12/10/11) H/O EPISODES LIKELY FOR 2 YRS; EF 52%, NL TSH; Heitzman; noted 12/10/11 office, Apixaban 2015; EF 60% 11/2014 ECHO Surgical History (Updated 08/13/22 @ 17:13 by Ivana Lucero MD) egd (02/29/16) [facility] Yariel H/O umbilical hernia repair Hx of appendectomy S/P tonsillectomy Family History (Updated 08/13/22 @ 17:12 by Ivana Lucero MD) Mother , fluid in lungs at age 57. 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 Pets and animals: Yes Pets and animals: dog(s) Sexually active: No Do you think of yourself as: straight/heterosexual Current gender identity: male What is your relationship status?: How often do you talk on the phone with friends or family?: three or more times per week How often do you get together with friends or relatives?: never How often do you attend worship or confucianism services?: decline to answer Do you belong to any clubs or organized social groups?: no Panel score (0-1 are the most socially isolated patients): 2 What type of physical activity do you participate in: none Seatbelt use: sometimes Drive intox or ride w/intox straddle truck driver: No Water heater temp set <120 deg: Yes Working smoke detector in home: Yes Fire extinguisher in home: Yes Carbon monox detector in home: Yes Do you feel safe at home: Yes Meds Allergies and Home Medications Allergies Allergy/AdvReac Type Severity Reaction Status Date / Time celecoxib Allergy Unknown SKIN Verified 08/13/22 10:43 BREAKDOWN, RASH pantoprazole AdvReac Intermediate diarrhea Verified 08/13/22 10:43 gabapentin AdvReac Mild Skin Rash Verified 08/13/22 10:43 diltiazem AdvReac Unknown HEADACHES Verified 08/13/22 10:43 Home Medications Medication Instructions Recorded Confirmed Type docusate sodium 100 mg capsule 100 mg PO BID PRN 07/02/13 08/13/22 History (Dulcolax Stool Softener (docusate)) allopurinol 100 mg tablet 100 mg PO DAILY #90 tabs 05/16/21 08/13/22 Rx prednisone 20 mg tablet 20 mg PO DAILY PRN gout #7 tabs 05/16/21 08/13/22 Rx apixaban 5 mg tablet (Eliquis) 5 mg PO BID #180 tabs 08/31/21 08/13/22 Rx carvedilol 25 mg tablet 25 mg PO BID #180 tabs 08/31/21 08/13/22 Rx tamsulosin 0.4 mg capsule 0.4 mg PO DAILY #30 caps 04/16/22 08/13/22 Rx torsemide 20 mg tablet 20 mg PO BID #180 tabs 07/24/22 08/13/22 Rx oxycodone-acetaminophen 5 mg-325 1 tab PO TID PRN pain #84 tabs 07/31/22 08/13/22 Rx mg tablet torsemide 10 mg tablet 10 mg PO BID #30 tabs 08/02/22 08/13/22 Rx Exam Narrative Exam Narrative: General: Pleasant elderly male who is A&Ox3, laying comfortably nearly flat in bed on RA, no dyspnea/tachypnea/cyanosis Neurological: A&Ox3, no focal deficits Psychiatric: Appropriate speech pattern/content, joking Skin: Visible skin intact HEENT: Atraumatic, normocephalic, EOMI, dry MM, clear oropharynx, no submandibular or cervical lymphadenopathy, no goiter or JVD Cardiovascular: irregularly irregular rhythm, no m/r/g Lungs: CTAB Gastrointestinal: soft, + flank edema, nontender Genitourinary: has a johns - large amounts of UOP Extremities: 3+ pitting edema B, symmetric, no c/c, I am unable to palpate pedal pulses due to edema. Results Imaging Additional studies: CXR: No acute pulmonary findings. Venous dopplers BLEs: 1. No evidence of a right lower extremity DVT. 2. No evidence of a left lower extremity DVT. CT renal: 1. Mild thickening of the wall of the jejunum suggesting an enteritis. 2. Mild distention of the left ureter.? No ureterolithiasis or nephrolithiasis is seen.? This may reflect a recently passed stone or noncalcified stone.? Note is made of a stone within the urinary bladder. 3. Diffuse thickening of the wall of the urinary bladder.? Cystitis cannot be excluded.? Underdistention or chronic bladder outlet obstruction should also be considered. 4. Prostatomegaly. 5. Colonic diverticulosis, but no evidence of acute diverticulitis. 6. Cholelithiasis.? No biliary ductal dilatation. 7. Indeterminate hypodense right renal cortical nodules.? Correlation with ultrasound or MRI is recommended. EKG: Afib, HR 89, RBBB (old) Labs 08/13/22 11:00 08/13/22 11:00 Labs: Laboratory Results - last 24 hr 08/13/22 08/13/22 08/13/22 11:00 11:00 11:00 WBC 12.75 H RBC 3.82 L Hgb 11.9 L Hct 36.4 L MCV 95 MCH 31.2 MCHC 32.7 RDW 14.8 H Plt Count 149 MPV 10.0 Immature Gran % 0.4 Neutrophils % 82.6 Lymphocytes % 6.2 Monocytes % 9.4 Eosinophils % 0.9 Basophils % 0.5 Nucleated RBC % 0.0 Absolute Neutrophils 10.53 H Absolute Lymphocytes 0.79 L Absolute Monocytes 1.20 H Absolute Eosinophils 0.11 Absolute Basophils 0.06 Sodium 139 Potassium 4.2 Chloride 99 Carbon Dioxide 22.2 Anion Gap 17.8 H BUN 114 H* Creatinine 10.8 H* Est GFR (CKD-EPI 2020) 4.35 Glucose 122 H Uric Acid Calcium 7.9 L Magnesium 1.8 Total Bilirubin 1.2 H AST 7 L ALT 7 L Alkaline Phosphatase 58 Troponin I < 50 NT-Pro-B Natriuret Pep Cancelled 7396 H Total Protein 7.0 Albumin 3.2 L 08/13/22 11:00 WBC RBC Hgb Hct MCV MCH MCHC RDW Plt Count MPV Immature Gran % Neutrophils % Lymphocytes % Monocytes % Eosinophils % Basophils % Nucleated RBC % Absolute Neutrophils Absolute Lymphocytes Absolute Monocytes Absolute Eosinophils Absolute Basophils Sodium Potassium Chloride Carbon Dioxide Anion Gap BUN Creatinine Est GFR (CKD-EPI 2020) Glucose Uric Acid 12.0 H Calcium Magnesium Total Bilirubin AST ALT Alkaline Phosphatase Troponin I NT-Pro-B Natriuret Pep Total Protein Albumin Last Vital Signs Temp 36.7 C 08/13/22 10:38 Pulse 82 08/13/22 14:36 Resp 18 08/13/22 14:36 BP 121/76 08/13/22 14:36 Pulse Ox 99 08/13/22 14:36 Time Spent Time spent with Patient: 55-74 minutes Time was spent: preparing to see the patient(eg.review tests), obtaining and/or reviewing separately otained hiistory, ordering medications,tests, procedures, referring, communicating with other health overnight caregiver, indepentently interpreting results, counseling the patient and care coordination
--- NOTE | 2022-08-13 15:23 | UCONE_ITS ---
Date of service: 08/13/22 Time of Service: 16:00 Assessment and Plan Assessment and plan (1) Urinary retention: Status: Acute (2) MEDARDO (acute kidney injury): Status: Acute Assessment and plan: If his elevated serum creatinine is related to back up from his full bladder, his serum creatinine should begin to improve simply with catheter drainage of the bladder. He does have a history of an elevated serum uric acid, so it is possible that he would have uric acid stones that potentially could cause some obstruction in the ureters. If we do find any evidence of a ureteral obstruction, we would need to discuss whether or not the patient was interested in having a ureteral stent placed to bypass any obstruction. It is certainly quite reasonable to start him on tamsulosin. It is somewhat concerning however that he had no severe abdominal discomfort even though he had 2 L of urine in his bladder. He tells me that he will not consider either surgery or CIC if he does not show that he can empty his bladder eventually. It would not surprise me if this gentleman will require some type of chronic indwelling catheter for the remainder of his life. History of Present Illness Narrative: This is an 82-year-old gentleman who has a history of congestive heart failure and atrial fibrillation. He presented to the emergency department today with worsening edema. He has been on chronic diuretics, but has been increasing his dosage of diuretics recently. He has not noticed any improvement in urine output but he has been producing some urine at home. He has had some mild abdominal and suprapubic discomfort, but he thought this symptom was related to shingles (which have been bothersome for about 10 months now). When he was seen in the emergency department, he was found to have a serum creatinine of 10.8 ng/dL. A Goyal catheter was placed and over 2 L of urine wer e obtained. His abdominal discomfort improved somewhat but not completely with placement of a catheter. He does have a history of gout but no previous history of kidney stones. He does not recall seeing any gross hematuria. He has not had any type of urologic surgery in the past. Review of Systems Narrative: No fevers or chills No vision change or dysphasia No diabetes or thyroid dysfunction No hemoptysis No chest pain No nausea, vomiting, hepatitis, ulcers, jaundice Post herpetic neuropathy. No seizures, strokes No bleeding disorders Hx gout (uses med prn) PFSH All Active Problems (Updated 08/14/22 @ 07:12 by Liliya Armenta MD) Gross hematuria (Acute) Lethargy (Acute) Discharge planning issues (Acute) DVT prophylaxis (Acute) Urinary retention (Acute) MEDARDO (acute kidney injury) (Acute) Hyperbilirubinemia (Acute) Hypocalcemia (Acute) Elevated uric acid in blood (Acute) High anion gap metabolic acidosis (Acute) Anemia (Chronic) Leukocytosis (Acute) Acute renal failure due to urinary obstruction (Acute) Congestive heart failure (Chronic) Post herpetic neuralgia (Acute) Toe swelling (Acute) Atrial fibrillation with RVR (Acute) Mitral regurgitation (Chronic) Hypertension (Chronic) Cardiomyopathy (Acute) Osteoarthritis of knee (Acute) Tobacco dependence syndrome (Acute 09/17/11) Unspecified essential hypertension (Chronic 03/11/93) 1993 Primary osteoarthritis of both knees (Chronic) Plan is to continue Visco supplem follow-up with me in 6 months unless there is some intercurrent worsening of his symptomatology. Entation of both knees. The patient inquires whether or not a brace would be of help. I think a simple elastic knee sleeve such as a copper fit brace is most suitable to him. I would recommend an extra large size. 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), sciatica 07, djd pain (also Dreisbach); no NSAID's due to GI bleed (2015) Osteoarthritis of knee (Chronic) LEFT PATRIZIA; INJ DREISBACH; DJD Hyperlipidemia (Chronic 11/09/00) risk 25% 11/2000, patrizia smoking, low HDL; goal LDL<100 Esophagitis determined by endoscopy (Chronic 03/09/16) EGD 02/29/16; Melena on Apixaban Chronic anticoagulation (Chronic 10/15/16) Apixaban Atrial fibrillation (Chronic 12/10/11) H/O EPISODES LIKELY FOR 2 YRS; EF 52%, NL TSH; Heitzman; noted 12/10/11 office, Apixaban 2015; EF 60% 11/2014 ECHO Surgical History (Updated 08/13/22 @ 17:13 by Ivana Lucero MD) egd (02/29/16) [facility] Yariel H/O umbilical hernia repair Hx of appendectomy S/P tonsillectomy Family History (Updated 08/13/22 @ 17:12 by Ivana Lucero MD) Mother , fluid in lungs at age 57. Heart disease CHF Sister Stroke Social History (Updated 08/13/22 @ 17:14 by Ivana Lucero MD) Smoking/Tobacco Use Status: Former Tobacco Use Pack-years: 120 Tobacco: How many years used: 64 Smoking risk assessment performed?: Yes Alcohol Intake: never Drug use: Never Adopted: No Caregiver/Support person: No Foster care: No Household members: spouse Housing: apartment Number of Children: 5 number of grandchildren: 11 Communication Needs: None Education Level: college Do you need help understanding health information?: Never current occupation: [employer] Pets and animals: Yes Pets and animals: dog(s) Sexually active: No Do you think of yourself as: straight/heterosexual Current gender identity: male What is your relationship status?: How often do you talk on the phone with friends or family?: three or more times per week How often do you get together with friends or relatives?: never How often do you attend restorationist or yarsani services?: decline to answer Do you belong to any clubs or organized social groups?: no Panel score (0-1 are the most socially isolated patients): 2 What type of physical activity do you participate in: none Seatbelt use: sometimes Drive intox or ride w/intox armored car guard and driver: No Water heater temp set <120 deg: Yes Working smoke detector in home: Yes Fire extinguisher in home: Yes Carbon monox detector in home: Yes Do you feel safe at home: Yes Exam Narrative Exam Narrative: He is a is not gentleman. He does not appear septic or toxic His vital signs are documented elsewhere His abdomen is obese but soft with no peritoneal signs A Goyal catheter is in place and is draining clear urine He is awake and alert A noncontrast CT of the abdomen and pelvis has been ordered, but has not yet been accomplished. I was able to review his renal ultrasound done back in 2016. It appears that the study was done when his serum creatinine went from 1.3 up to 1.79 mg/dL. At that time, there was no hydronephrosis and his residual bladder volume was just over 100 cc His serum creatinine on admission is 10.8 compared to 1.4 mg/dL in 2020. His serum uric acid is elevated Results Last Vital Signs Temp 36.7 C 08/13/22 10:38 Pulse 82 08/13/22 14:36 Resp 18 08/13/22 14:36 BP 121/76 08/13/22 14:36 Pulse Ox 99 08/13/22 14:36 Labs 08/14/22 05:45 08/14/22 05:45 Labs: Laboratory Results - last 24 hr 08/13/22 08/13/22 08/13/22 11:00 11:00 11:00 WBC 12.75 H RBC 3.82 L Hgb 11.9 L Hct 36.4 L MCV 95 MCH 31.2 MCHC 32.7 RDW 14.8 H Plt Count 149 MPV 10.0 Immature Gran % 0.4 Neutrophils % 82.6 Lymphocytes % 6.2 Monocytes % 9.4 Eosinophils % 0.9 Basophils % 0.5 Nucleated RBC % 0.0 Absolute Neutrophils 10.53 H Absolute Lymphocytes 0.79 L Absolute Monocytes 1.20 H Absolute Eosinophils 0.11 Absolute Basophils 0.06 Sodium 139 Potassium 4.2 Chloride 99 Carbon Dioxide 22.2 Anion Gap 17.8 H BUN 114 H* Creatinine 10.8 H* Est GFR (CKD-EPI 2020) 4.35 Glucose 122 H Uric Acid Calcium 7.9 L Magnesium 1.8 Total Bilirubin 1.2 H AST 7 L ALT 7 L Alkaline Phosphatase 58 Troponin I < 50 NT-Pro-B Natriuret Pep Cancelled 7396 H Total Protein 7.0 Albumin 3.2 L 08/13/22 11:00 WBC RBC Hgb Hct MCV MCH MCHC RDW Plt Count MPV Immature Gran % Neutrophils % Lymphocytes % Monocytes % Eosinophils % Basophils % Nucleated RBC % Absolute Neutrophils Absolute Lymphocytes Absolute Monocytes Absolute Eosinophils Absolute Basophils Sodium Potassium Chloride Carbon Dioxide Anion Gap BUN Creatinine Est GFR (CKD-EPI 2020) Glucose Uric Acid 12.0 H Calcium Magnesium Total Bilirubin AST ALT Alkaline Phosphatase Troponin I NT-Pro-B Natriuret Pep Total Protein Albumin
[2022-08-13 15:43] LABS: Lab Add On Test DONE
[2022-08-13 16:08] LABS: Creatine Kinase 59 U/L (39-308); FREE T4 1.33 ng/dL (0.76-1.46); Magnesium 1.9 mg/dL (1.8-2.4); TSH 0.93 uIU/mL (0.36-3.74)
[2022-08-13 16:12] LABS: PHOSPHORUS 9.7 mg/dL (2.6-4.7)
[2022-08-13 16:13] LABS: Procalcitonin 0.2 ng/mL
[2022-08-13 17:08] LABS: BE (Venous) -4 mmol/L (-2-3); HCO3 (Venous) 22 mmol/L (23-28); O2 Sat (Venous) 62 %; TCO2 (Venous) 21 mmol/L (24-29); pCO2 (Venous) 42 mmHg (41-51); pH (Venous) 7.33 (7.31-7.41); pO2 (Venous) 32 mmHg
[2022-08-13 17:09] LABS: Lactate 1.6 mmol/L (0.6-1.4)
[2022-08-13] MEDS: Docusate Sodium 100 MG/10 ML CUP PO (18:20)
[2022-08-13] MEDS: Polyethylene Glycol 3350 17 GM PACKET PO (18:20)
[2022-08-13] MEDS: Senna TAB 1 TAB PO (18:21)
[2022-08-13] MEDS: Bisacodyl 5 MG TABEC PO (18:21)
[2022-08-13 18:34] LABS: Bilirubin Negative (Negative); Blood Large (Negative); Clarity Cloudy (Clear); Glucose Negative (Negative); Ketones Negative (Negative); Leukocyte Esterase Negative (Negative); Nitrite Negative (Negative); Specific Gravity 1.015 (1.005-1.025); Urobilinogen 0.2 mg/dL (Up to 0.2)
[2022-08-13 18:43] LABS: Bacteria Rare HPF (Negative); C & S Indicated? C&S Done As Ordered; Casts Negative LPF (Negative); Crystals Negative HPF (Negative); Epithelial Cells Rare HPF (Negative); Mucus Negative (Negative); RBC >50 HPF (0-2); WBC 0-2 HPF (0-5)
[2022-08-13 19:15] LABS: Creatinine,Urine 25.54 mg/dL
[2022-08-13] MEDS: Carvedilol 25 MG TAB PO (21:22)
[2022-08-13] MEDS: Calcium Carbonate 1.25 GM TAB PO (21:22)
[2022-08-13] MEDS: Apixaban 2.5 MG TAB PO (21:23)
[2022-08-13] MEDS: Normal Saline Flush 10 ML SYR IVP (21:24)
[2022-08-14] VITALS (12 sets, daily range): BP systolic 91–123; BP diastolic 58–81; PULSE 77–111; RESP 8–18; TEMP 36.1–36.8; O2SAT 94–99
--- NOTE | 2022-08-14 06:52 | W.PULMCC ---
General Date of Service Date of service: 08/14/22 Time of Service: 06:52 Reason for Admission to ICU: Renal Failure Assessment and Plan Assessment and plan (1) Acute renal failure due to urinary obstruction: Status: Acute (2) Leukocytosis: Status: Acute (3) Congestive heart failure: Status: Chronic (4) Gross hematuria: Status: Acute (5) Anemia: Status: Chronic (6) High anion gap metabolic acidosis: Status: Acute (7) Lethargy: Status: Acute (8) Elevated uric acid in blood: Status: Acute (9) Hypocalcemia: Status: Acute (10) Hyperbilirubinemia: Status: Acute (11) Atrial fibrillation with RVR: Status: Acute Assessment and plan: This is an 82 yo being admitted to the ICU for obstructive renal failure. He had 2000cc urine empty after catheterization and in total has a UOP of 5000cc. His renal CT found mild distention of the left ureter with no stones seen and there was a stone seen within the urinary bladder. He was having back pain prior to his hospitalization which was worsened and may have reflected this stone that has now passed. This is not an explanation for his urinary retention unless there was a stone so big it obstructed the bladder outlet. He is ordered for an echo today. His labs are pending today, however I suspect a large improvement in his creatinine. He is having blood in the urine now, which is not overly surprising. Goyal management and plan to be managed by urology. I do not think he requires ICU level of care at this moment. Recommendations Pulmonary: No acute concerns Cardiac: CHF - diuresis for negative fluid balance - cardiac function on POCUS today appearance preserved - echo today Afib with RVR - on AC Renal: Gross hematuria - monitor urine and Hb - Goyal functioning this morning Obstructive renal failure - Goyal catheter - strict I/O's - CT renal imaging - stone in bladder, left ureter dilation - appreciate urology care - close electrolyte monitoring Anion gap metabolic acidosis - likely due to uremia Elevated uric acid - continue to monitor - continue allopurinol Hypocalcemia - continue to monitor I&O: Intake & Output 08/11/22 08/12/22 08/13/22 08/14/22 23:59 23:59 23:59 23:59 Intake Total Output Total 4450 / 4450 1200 / 1200 Balance -4440 / -4440 -1190 / -1190 Weight 111.13 kg Daily Fluid Goal:: even to negative 1 L GI Nutrition: OK for diet - cardio renal diet Hyperbilirubinemia - no transaminase elevation - continue to monitor Date of Last Bowel Movement: 08/09/22 Infectious Disease: No infection suspected Hematologic: Leukocytosis - reactive - infection not suspected Anemia - continue to monitor - no acute concern Neurologic: Lethargy - due to uremia, will continue to monitor - improved Endocrine: No acute concerns Lines: PIV Goyal Prophylaxis: on Eliquis Code Status: Resuscitation Status DNR/DNI Subjective Critical and life-threatening events over the past 24 hours: Jacob is feeling well, he states he is ready to go home. He now has blood tinged urine and RN reports blood clots present prior to the bag being changed. Goyal draining appropriately - no obstruction. Exam Narrative Exam Narrative: Gen: NAD, normal respiratory effort, well-nourished HENT: PERRL, nasal turbinates normal without erythema or inflammation, moist oral mucosa, Mallampati 2, No LAD or JVD Chest: No respiratory distress, normal appearance of chest, clear to auscultation bilaterally, no crackles or wheezes, normal inspiratory effort Heart: regular rate and rhythym, no murmurs, rubs or gallops Abdomen: Non-distended, soft, non tender Extremities: No clubbing, 3+ edema up through hips, cyanosis, rashes Neuro: AAOx3 , non focal Psych: cooperative, appropriate mental affect Most Recent VS/Results Last Vital Signs Temp 36.7 C 08/14/22 00:00 Pulse 86 08/14/22 04:00 Resp 12 08/14/22 04:00 BP 106/69 08/14/22 04:00 Pulse Ox 94 08/14/22 04:00 Laboratory Results - last 24 hr 08/13/22 08/13/22 08/13/22 11:00 11:00 11:00 WBC 12.75 H RBC 3.82 L Hgb 11.9 L Hct 36.4 L MCV 95 MCH 31.2 MCHC 32.7 RDW 14.8 H Plt Count 149 MPV 10.0 Immature Gran % 0.4 Neutrophils % 82.6 Lymphocytes % 6.2 Monocytes % 9.4 Eosinophils % 0.9 Basophils % 0.5 Nucleated RBC % 0.0 Absolute Neutrophils 10.53 H Absolute Lymphocytes 0.79 L Absolute Monocytes 1.20 H Absolute Eosinophils 0.11 Absolute Basophils 0.06 VBG pH VBG pCO2 VBG pO2 VBG HCO3 VBG Total CO2 VBG O2 Saturation VBG Base Excess VBG Lactate Sodium 139 Potassium 4.2 Chloride 99 Carbon Dioxide 22.2 Anion Gap 17.8 H BUN 114 H* Creatinine 10.8 H* Est GFR (CKD-EPI 2020) 4.35 Glucose 122 H Uric Acid Calcium 7.9 L Phosphorus Magnesium 1.8 Total Bilirubin 1.2 H AST 7 L ALT 7 L Alkaline Phosphatase 58 Creatine Kinase Troponin I < 50 NT-Pro-B Natriuret Pep Cancelled 7396 H Total Protein 7.0 Albumin 3.2 L Procalcitonin TSH Free T4 Urine Color Urine Clarity Urine pH Ur Specific [place] Urine Protein Urine Ketones Urine Blood Urine Nitrite Urine Bilirubin Urine Urobilinogen Ur Leukocyte Esterase Urine RBC Urine WBC Ur Epithelial Cells Urine Crystals Urine Bacteria Urine Casts Urine Mucus Ur Culture Indicated? Ur Random Creatinine Urine Glucose Add-On Test Request 08/13/22 08/13/22 08/13/22 11:00 11:00 11:00 WBC RBC Hgb Hct MCV MCH MCHC RDW Plt Count MPV Immature Gran % Neutrophils % Lymphocytes % Monocytes % Eosinophils % Basophils % Nucleated RBC % Absolute Neutrophils Absolute Lymphocytes Absolute Monocytes Absolute Eosinophils Absolute Basophils VBG pH VBG pCO2 VBG pO2 VBG HCO3 VBG Total CO2 VBG O2 Saturation VBG Base Excess VBG Lactate Sodium Potassium Chloride Carbon Dioxide Anion Gap BUN Creatinine Est GFR (CKD-EPI 2020) Glucose Uric Acid 12.0 H Calcium Phosphorus 9.7 H Magnesium 1.9 Total Bilirubin AST ALT Alkaline Phosphatase Creatine Kinase 59 Troponin I NT-Pro-B Natriuret Pep Total Protein Albumin Procalcitonin TSH 0.93 Free T4 1.33 Urine Color Urine Clarity Urine pH Ur Specific [place] Urine Protein Urine Ketones Urine Blood Urine Nitrite Urine Bilirubin Urine Urobilinogen Ur Leukocyte Esterase Urine RBC Urine WBC Ur Epithelial Cells Urine Crystals Urine Bacteria Urine Casts Urine Mucus Ur Culture Indicated? Ur Random Creatinine Urine Glucose Add-On Test Request DONE 08/13/22 08/13/22 08/13/22 11:00 17:00 17:00 WBC RBC Hgb Hct MCV MCH MCHC RDW Plt Count MPV Immature Gran % Neutrophils % Lymphocytes % Monocytes % Eosinophils % Basophils % Nucleated RBC % Absolute Neutrophils Absolute Lymphocytes Absolute Monocytes Absolute Eosinophils Absolute Basophils VBG pH 7.33 VBG pCO2 42 VBG pO2 32 VBG HCO3 22 L VBG Total CO2 21 L VBG O2 Saturation 62 VBG Base Excess -4 L VBG Lactate 1.6 H Sodium Potassium Chloride Carbon Dioxide Anion Gap BUN Creatinine Est GFR (CKD-EPI 2020) Glucose Uric Acid Calcium Phosphorus Magnesium Total Bilirubin AST ALT Alkaline Phosphatase Creatine Kinase Troponin I NT-Pro-B Natriuret Pep Total Protein Albumin Procalcitonin 0.2 TSH Free T4 Urine Color Urine Clarity Urine pH Ur Specific [place] Urine Protein Urine Ketones Urine Blood Urine Nitrite Urine Bilirubin Urine Urobilinogen Ur Leukocyte Esterase Urine RBC Urine WBC Ur Epithelial Cells Urine Crystals Urine Bacteria Urine Casts Urine Mucus Ur Culture Indicated? Ur Random Creatinine Urine Glucose Add-On Test Request 08/13/22 08/13/22 17:50 17:50 WBC RBC Hgb Hct MCV MCH MCHC RDW Plt Count MPV Immature Gran % Neutrophils % Lymphocytes % Monocytes % Eosinophils % Basophils % Nucleated RBC % Absolute Neutrophils Absolute Lymphocytes Absolute Monocytes Absolute Eosinophils Absolute Basophils VBG pH VBG pCO2 VBG pO2 VBG HCO3 VBG Total CO2 VBG O2 Saturation VBG Base Excess VBG Lactate Sodium Potassium Chloride Carbon Dioxide Anion Gap BUN Creatinine Est GFR (CKD-EPI 2020) Glucose Uric Acid Calcium Phosphorus Magnesium Total Bilirubin AST ALT Alkaline Phosphatase Creatine Kinase Troponin I NT-Pro-B Natriuret Pep Total Protein Albumin Procalcitonin TSH Free T4 Urine Color [place] Urine Clarity Cloudy Urine pH 7.0 Ur Specific [place] 1.015 Urine Protein 100 H Urine Ketones Negative Urine Blood Large H Urine Nitrite Negative Urine Bilirubin Negative Urine Urobilinogen 0.2 Ur Leukocyte Esterase Negative Urine RBC >50 H Urine WBC 0-2 Ur Epithelial Cells Rare Urine Crystals Negative Urine Bacteria Rare Urine Casts Negative Urine Mucus Negative Ur Culture Indicated? C&S Done As Ordered Ur Random Creatinine 25.54 Urine Glucose Negative Add-On Test Request Review of Systems All systems reviewed & are unremarkable except as noted in HPI and below Time spent with patient Time spent in Critical Care: 45 Time spent in Critical care included: Chart review, Documenting critically ill care, Time at immediate bedside and Discussing critically ill care with other medical staff
[2022-08-14 07:07] LABS: Abs Immature Grans 0.07 10^3/uL (0.0-0.06); Absolute Basophil Count 0.05 10^3/uL (0.0-0.2); Absolute Eosinophil Count 0.13 10^3/uL (0.0-0.7); Absolute Monocyte Count 0.96 10^3/uL (0.1-0.8); Absolute Neutrophil Count 7.35 10^3/uL (1.2-6.7); Basophils % 0.5; Eosinophils % 1.3; HGB 11.5 g/dL (13.5-17.5); Immature Grans % 0.7; Lymphocytes % 11.4; MCHC 32.9 % (32.0-36.0); MCV 94 fL (80-95); MPV 10.5 fL (8.0-11.0); Monocytes % 9.9; Neutrophils % 76.2; Platelet Count 157 10^3/uL (130-400); RBC 3.71 10^6/uL (4.36-5.78); RDW 14.6 % (11.8-14.1); RDW-SD 51.4 fL; WBC 9.66 10^3/uL (4.4-10.8)
[2022-08-14 07:30] LABS: Calcium 8.8 mg/dL (8.5-10.1); Chloride 101 mmol/L (98-107); Estimated GFR 4.89 (mL/min/1.73m2); Glucose 90 mg/dL (74-106); Magnesium 1.9 mg/dL (1.8-2.4); PHOSPHORUS 9.8 mg/dL (2.6-4.7); Sodium 143 mmol/L (136-145)
[2022-08-14 07:32] LABS: BUN 112 mg/dL (7-18); CREATININE 9.8 mg/dL (0.70-1.30)
--- NOTE | 2022-08-14 07:42 | W.PM.PROGNOT ---
Date of Service Date of service: 08/14/22 Time of Service: 07:43 Assessment and Plan Assessment and plan (1) Urinary retention: Status: Acute Assessment and plan: His serum and his decreased slightly. It will be interesting to see where his renal function stabilizes with catheter drainage The patient his reiterated that he is not interested in any type of surgical procedures nor will he even consider CIC if he is unable to void. I expect that we will likely need a chronic catheter in this gentleman. The presence of hematuria does not surprise me at this point in time. He is on Eliquis and his bladder had been quite distended when we initially placed his catheter. I do not see any evidence that we need continuous bladder irrigation at this time but I would simply hand irrigate the catheter on a as needed basis. Subjective Subjective Interval history since last seen: He has noticed that his edema seems to be improving. He is not having any discomfort related to his Goyal catheter Exam Narrative Exam Narrative: He does not appear septic or toxic His vital signs are documented elsewhere His urine is light pink His serum creatinine has decreased slightly from yesterday He is awake and alert Objective Last Vital Signs Temp 36.7 C 08/14/22 00:00 Pulse 86 08/14/22 04:00 Resp 12 08/14/22 04:00 BP 106/69 08/14/22 04:00 Pulse Ox 94 08/14/22 04:00 Laboratory Results - last 24 hr 08/13/22 08/13/22 08/13/22 11:00 11:00 11:00 WBC 12.75 H RBC 3.82 L Hgb 11.9 L Hct 36.4 L MCV 95 MCH 31.2 MCHC 32.7 RDW 14.8 H Plt Count 149 MPV 10.0 Immature Gran % 0.4 Neutrophils % 82.6 Lymphocytes % 6.2 Monocytes % 9.4 Eosinophils % 0.9 Basophils % 0.5 Nucleated RBC % 0.0 Absolute Neutrophils 10.53 H Absolute Lymphocytes 0.79 L Absolute Monocytes 1.20 H Absolute Eosinophils 0.11 Absolute Basophils 0.06 VBG pH VBG pCO2 VBG pO2 VBG HCO3 VBG Total CO2 VBG O2 Saturation VBG Base Excess VBG Lactate Sodium 139 Potassium 4.2 Chloride 99 Carbon Dioxide 22.2 Anion Gap 17.8 H BUN 114 H* Creatinine 10.8 H* Est GFR (CKD-EPI 2020) 4.35 Glucose 122 H Uric Acid Calcium 7.9 L Phosphorus Magnesium 1.8 Total Bilirubin 1.2 H AST 7 L ALT 7 L Alkaline Phosphatase 58 Creatine Kinase Troponin I < 50 NT-Pro-B Natriuret Pep Cancelled 7396 H Total Protein 7.0 Albumin 3.2 L Procalcitonin TSH Free T4 Urine Color Urine Clarity Urine pH Ur Specific [place] Urine Protein Urine Ketones Urine Blood Urine Nitrite Urine Bilirubin Urine Urobilinogen Ur Leukocyte Esterase Urine RBC Urine WBC Ur Epithelial Cells Urine Crystals Urine Bacteria Urine Casts Urine Mucus Ur Culture Indicated? Ur Random Creatinine Urine Glucose Add-On Test Request 08/13/22 08/13/22 08/13/22 11:00 11:00 11:00 WBC RBC Hgb Hct MCV MCH MCHC RDW Plt Count MPV Immature Gran % Neutrophils % Lymphocytes % Monocytes % Eosinophils % Basophils % Nucleated RBC % Absolute Neutrophils Absolute Lymphocytes Absolute Monocytes Absolute Eosinophils Absolute Basophils VBG pH VBG pCO2 VBG pO2 VBG HCO3 VBG Total CO2 VBG O2 Saturation VBG Base Excess VBG Lactate Sodium Potassium Chloride Carbon Dioxide Anion Gap BUN Creatinine Est GFR (CKD-EPI 2020) Glucose Uric Acid 12.0 H Calcium Phosphorus 9.7 H Magnesium 1.9 Total Bilirubin AST ALT Alkaline Phosphatase Creatine Kinase 59 Troponin I NT-Pro-B Natriuret Pep Total Protein Albumin Procalcitonin TSH 0.93 Free T4 1.33 Urine Color Urine Clarity Urine pH Ur Specific [place] Urine Protein Urine Ketones Urine Blood Urine Nitrite Urine Bilirubin Urine Urobilinogen Ur Leukocyte Esterase Urine RBC Urine WBC Ur Epithelial Cells Urine Crystals Urine Bacteria Urine Casts Urine Mucus Ur Culture Indicated? Ur Random Creatinine Urine Glucose Add-On Test Request DONE 08/13/22 08/13/22 08/13/22 11:00 17:00 17:00 WBC RBC Hgb Hct MCV MCH MCHC RDW Plt Count MPV Immature Gran % Neutrophils % Lymphocytes % Monocytes % Eosinophils % Basophils % Nucleated RBC % Absolute Neutrophils Absolute Lymphocytes Absolute Monocytes Absolute Eosinophils Absolute Basophils VBG pH 7.33 VBG pCO2 42 VBG pO2 32 VBG HCO3 22 L VBG Total CO2 21 L VBG O2 Saturation 62 VBG Base Excess -4 L VBG Lactate 1.6 H Sodium Potassium Chloride Carbon Dioxide Anion Gap BUN Creatinine Est GFR (CKD-EPI 2020) Glucose Uric Acid Calcium Phosphorus Magnesium Total Bilirubin AST ALT Alkaline Phosphatase Creatine Kinase Troponin I NT-Pro-B Natriuret Pep Total Protein Albumin Procalcitonin 0.2 TSH Free T4 Urine Color Urine Clarity Urine pH Ur Specific [place] Urine Protein Urine Ketones Urine Blood Urine Nitrite Urine Bilirubin Urine Urobilinogen Ur Leukocyte Esterase Urine RBC Urine WBC Ur Epithelial Cells Urine Crystals Urine Bacteria Urine Casts Urine Mucus Ur Culture Indicated? Ur Random Creatinine Urine Glucose Add-On Test Request 08/13/22 08/13/22 08/14/22 17:50 17:50 05:45 WBC RBC Hgb Hct MCV MCH MCHC RDW Plt Count MPV Immature Gran % Neutrophils % Lymphocytes % Monocytes % Eosinophils % Basophils % Nucleated RBC % Absolute Neutrophils Absolute Lymphocytes Absolute Monocytes Absolute Eosinophils Absolute Basophils VBG pH VBG pCO2 VBG pO2 VBG HCO3 VBG Total CO2 VBG O2 Saturation VBG Base Excess VBG Lactate Sodium 143 Potassium 4.0 Chloride 101 Carbon Dioxide 27.0 Anion Gap 15.0 H BUN 112 H* Creatinine 9.8 H* Est GFR (CKD-EPI 2020) 4.89 Glucose 90 Uric Acid Calcium 8.8 Phosphorus 9.8 H Magnesium 1.9 Total Bilirubin AST ALT Alkaline Phosphatase Creatine Kinase Troponin I NT-Pro-B Natriuret Pep Total Protein Albumin Procalcitonin TSH Free T4 Urine Color [place] Urine Clarity Cloudy Urine pH 7.0 Ur Specific [place] 1.015 Urine Protein 100 H Urine Ketones Negative Urine Blood Large H Urine Nitrite Negative Urine Bilirubin Negative Urine Urobilinogen 0.2 Ur Leukocyte Esterase Negative Urine RBC >50 H Urine WBC 0-2 Ur Epithelial Cells Rare Urine Crystals Negative Urine Bacteria Rare Urine Casts Negative Urine Mucus Negative Ur Culture Indicated? C&S Done As Ordered Ur Random Creatinine 25.54 Urine Glucose Negative Add-On Test Request 08/14/22 05:45 WBC 9.66 RBC 3.71 L Hgb 11.5 L Hct 35.0 L MCV 94 MCH 31.0 MCHC 32.9 RDW 14.6 H Plt Count 157 MPV 10.5 Immature Gran % 0.7 Neutrophils % 76.2 Lymphocytes % 11.4 Monocytes % 9.9 Eosinophils % 1.3 Basophils % 0.5 Nucleated RBC % 0.0 Absolute Neutrophils 7.35 H Absolute Lymphocytes 1.10 L Absolute Monocytes 0.96 H Absolute Eosinophils 0.13 Absolute Basophils 0.05 VBG pH VBG pCO2 VBG pO2 VBG HCO3 VBG Total CO2 VBG O2 Saturation VBG Base Excess VBG Lactate Sodium Potassium Chloride Carbon Dioxide Anion Gap BUN Creatinine Est GFR (CKD-EPI 2020) Glucose Uric Acid Calcium Phosphorus Magnesium Total Bilirubin AST ALT Alkaline Phosphatase Creatine Kinase Troponin I NT-Pro-B Natriuret Pep Total Protein Albumin Procalcitonin TSH Free T4 Urine Color Urine Clarity Urine pH Ur Specific [place] Urine Protein Urine Ketones Urine Blood Urine Nitrite Urine Bilirubin Urine Urobilinogen Ur Leukocyte Esterase Urine RBC Urine WBC Ur Epithelial Cells Urine Crystals Urine Bacteria Urine Casts Urine Mucus Ur Culture Indicated? Ur Random Creatinine Urine Glucose Add-On Test Request Time Spent with Patient Time Spent with Patient: <25 minutes Time was spent: preparing to see the patient(eg.review tests) and counseling the patient
[2022-08-14 07:48] LABS: Folate 6.9 ng/mL (8.6-20.0); Vitamin B12 265 pg/mL (193-986)
[2022-08-14 07:59] LABS: Ferritin 337 ng/mL (26-388)
--- NOTE | 2022-08-14 09:00 | DI.US_ITS ---
APPROVED REPORT EXAM: Comprehensive 2D, Doppler, and color-flow Echocardiogram Patient Location: In-Patient Room/Bed: 222 Record Changer: Kiran Harmon RDMS, RVT Indications: h/o CHF, suspected cardiorenal syndrome Other Information Study Quality: Adequate. Technically limited study due to body habitus. Conclusion Normal left ventricular wall thickness and chamber size. Ejection fraction is estimated at 50 to 55% without segmental wall motion abnormalities. Patient is in atrial fibrillation with [id number] va riation which confounds assessment Normal right ventricular size and systolic function Both atria are moderately dilated There are no structural valvular abnormalities Estimated right ventricular systolic pressure is 33 mmHg Mildly dilated ascending aorta 3.56 cm Wall motion Left Ventricle The left ventricle is normal size. Borderline systolic function There is normal left ventricular wall thickness. There are no segmental wall motion abnormalities There is no ventricular septal defect vi sualized. LVEF is 50-55%. Right Ventricle The right ventricle is normal size. The right ventricular systolic function is normal. The RVSP is 32 .6 mmHg. Atria Left atrium is moderately dilated. Right atrium is moderately dilated. The interatrial septum is inta ct with no evidence for an atrial septal defect. Aortic Valve The aortic valve is normal in structure. Aortic valve is trileaflet. There is no aortic valvular sten osis. No aortic regurgitation is present. Mitral Valve The mitral valve is normal in structure. No evidence of mitral valve stenosis. Trace mitral regurgit ation. Tricuspid Valve The tricuspid valve is normal in structure. There is no tricuspid valve stenosis. Mild tricuspid reg urgitation. Pulmonic Valve Pulmonic valve is grossly normal in structure. There is no pulmonic valvular stenosis. Trace pulmonic regurgitation. Great Vessels The aortic root is normal in size. The ascending aorta is mildly dilated. IVC is normal in size and c ollapses >50% with inspiration. Pericardium There is no pericardial effusion. 2D Dimensions IVSD d PLAX 0.67 cm M: 0.6-1.2 LV Vol A2C d MOD 69.6 mL LVPW d PLAX 0.68 cm M: 0.6 - 1.2 LV Vol A4C d MOD 100.8 mL LVID d PLAX 5.03 cm M: 4.2 - 5.8 LA vol/ BSA A4C s A-L 27.6 mL/m2 LVDs 3.95 cm M: 2.5 - 4.0 LA Area A4C s MOD 20.42 cm2 Ao Root d 2.95 cm M: 3.1 - 3.7 LV EF A4C MOD 44.7 % Ao Asc Diam d 3.56 cm M: 2.6 - 3.4 LV EF A2C MOD 45.5 % LV EF Teichholz 41.8 % LV EF Biplane MOD 47.1 % LVEF (Roberson's) 47.06 % M: 52 - 72 SV 40.98 mL LV Volume 62.87 mL M: 62 - 150 SV Index 18.20 mL/m2 LV Volume Index 27.94 mL/m2 M: 34 - 74 LV Vol Biplane MOD 87.1 mL FS 20.55 % M-Mode TAPSE 1.61 cm (M/F) >1.7 LV Diastology MV E' lateral 0.109 (>0.1 m/s) MV E Vmax 0.88 (0.4-1.3 m/s) LV E/e LAT 8.05 (<14) MV E/E' lateral 8.06 Aortic Valve LVOT Area 3.32 cm2 AoV Area Vmax 2.73 cm2 LVOT Vmax 1.01 m/s AoV Area/ BSA (Vmax) 1.21 cm2/m2 LVOT Mean Gideon. 0.71 m/s RAE Mean Gideon. 2.43 cm2 LVOT Peak Grad 4.1 mmHg RAE Mean Gideon. Index 1.08 cm2/m2 LVOT Mean Grad 2.2 mmHg LVOT VTI 0.191 m LVOT Diam s 2.05 cm AoV Vmax 1.23 m/s Velocity Ratio 0.82 AoV Mean Gideon. 0.97 m/s AoV Peak Grad 6.1 mmHg LVOT SV 63.43 mL AoV Mean Grad 4.0 mmHg AoV VTI 0.249 m AoV Area VTI 2.55 cm2 AoV Area/ BSA (VTI) 1.13 cm/m2 Mitral Valve MV DT 240 (160-240 msec) MV PHT 69 msec MV Area PHT 3.17 cm2 MV VTI 0.211 m MV Area VTI 3.01 (4.0-6.0 cm2) Pulmonary Valve PV Vmax 0.69 (0.5-1.5 m/s) RVOT Peak Gr. 1.69 mmHg PV Peak Grad 1.9 mmHg RVOT Mean Gr. 0.95 mmHg PV Mean Grad 1.4 mmHg RVOT VTI 0.120 m PV VTI 0.132 m RVOT Vmax 0.65 m/s Tricuspid Valve TR Peak Grad 29.5 mmHg TR Vmax 2.72 m/s RA Pressure 3.00 mmHg RVSP (TR) 32.6 mmHg
--- NOTE | 2022-08-14 09:15 | W.PM.PROGNOT ---
Date of Service Date of service: 08/14/22 Time of Service: 09:17 Assessment and Plan Assessment and plan (1) MEDARDO (acute kidney injury): Status: Acute Assessment and plan: Suspect that this is multifactorial, but at a minimum it has an obstructive component due to urinary retention with >2,000 cc out upon insertion of the johns catheter. Echo is getting done right now to evaluate the cardiorenal component. CT abdomen/pelvis with diffuse thickening of the bladder wall c/w chronic bladder outlet obstruction. He does have L ureteral distention and evidence of a bladder stone. There is prostatomegaly. Appreciate urology help: continue flomax. Await FEUrea. Continue supplementation of calcium. Does have hyperphosphatemia. No evidence of hyerkalemia. Continue allopurinol for hyperuricemia. Will continue to hold off of diuresis at this time - he is adequately diuresing on his own. Monitor Cr, I/Os, daily weights. I expect that a large portion of this MEDARDO will be reversible. (2) Gross hematuria: Status: Acute Assessment and plan: Evaluated by Dr Schwab. Recommends manual irrigation. Would continue anticoagulation unless hematuria worsens. (3) Urinary retention: Status: Acute Assessment and plan: As above. Continue flomax. Does have prostatomegaly. Decreased dose of percocet. Constipation has resolved - will need to stay on a bowel regimen. (4) High anion gap metabolic acidosis: Status: Acute Assessment and plan: Suspect this is due to above and it should improve with treatment of MEDARDO. This is compensated. Will continue to monitor serial chemistries. (5) Cardiomyopathy: Status: Acute Assessment and plan: Await echo. LVEF was preserved in 2020 with no evidence of R-sided failure per echo in our system. Qualifiers: Cardiomyopathy type: unspecified Qualified Code(s): I42.9 - Cardiomyopathy, unspecified (6) Congestive heart failure: Status: Chronic Assessment and plan: As above (7) Hyperbilirubinemia: Status: Acute Assessment and plan: Will trend. Today's total bili is 1.2, up from 1.1, but no evidence of transaminitis otherwise. Await hepatitis panel. This could be due to passive fluid congestion given the MEDARDO/obstructive uropathy. (8) Hypocalcemia: Status: Acute Assessment and plan: Replete (9) Elevated uric acid in blood: Status: Acute Assessment and plan: Has a h/o gout. I doubt that this is due to tumor lysis syndrome. Continue allopurinol. (10) Leukocytosis: Status: Resolved Assessment and plan: reactive due to acute urinary retention. No evidence of a UTI. Leucocytosis has resolved with decompression of the bladder. Would not start antibiotics at this time. (11) Anemia: Status: Chronic Assessment and plan: Has evidence of B12/folate deficiencies - replete. Does have hematuria right now, but not to the point of needing to stop anticoagulation. Monitor H/H. Await hematest. (12) Atrial fibrillation: Status: Chronic Assessment and plan: Rate controlled. Continue renally dosed apixaban. Will set holding parameters for coreg. Qualifiers: Atrial fibrillation type: permanent Qualified Code(s): I48.2 - Chronic atrial fibrillation (13) DVT prophylaxis: Status: Acute Assessment and plan: On therapeutic apixaban (14) Discharge planning issues: Status: Acute Assessment and plan: DNR/DNI Transfer out of the ICU. Await palliative care and PT consults. Discussed with Dr Armenta. Subjective Subjective Interval history since last seen: Mr Rain thinks he did not know yesterday where he was, but he is fully aware of where he is and what's going on now. He denies dizziness, CP, SOB. He is not nauseated. He just finally had a BM. He states his legs are less heavy and that he is able to move them better. He would like to go home. Hematuria was noted in his johns catheter. UOP: 4450 cc out prior to midnight; 1200 cc out since midnight. Exam Narrative Exam Narrative: General: Pleasant elderly male who is A&Ox3, laying comfortably nearly flat in bed on RA, no dyspnea/tachypnea/cyanosis. He does recall details of conversation from yesterday and remembers me. HEENT: EOMI, MMM Cardiovascular: irregularly irregular rhythm, no m/r/g Lungs: CTAB Gastrointestinal: soft, nontender, nondistended Genitourinary: has a johns - simon red urine in bag Extremities: 3+ pitting edema B, symmetric, I do not really see an improvement yet, no c/c, I am unable to palpate pedal pulses due to edema. Objective Last Vital Signs Temp 36.7 C 06/06/23 00:00 Pulse 86 08/14/22 04:00 Resp 12 08/14/22 04:00 BP 106/69 08/14/22 04:00 Pulse Ox 94 08/14/22 04:00 Laboratory Results - last 24 hr 08/13/22 08/13/22 08/13/22 11:00 11:00 11:00 WBC 12.75 H RBC 3.82 L Hgb 11.9 L Hct 36.4 L MCV 95 MCH 31.2 MCHC 32.7 RDW 14.8 H Plt Count 149 MPV 10.0 Immature Gran % 0.4 Neutrophils % 82.6 Lymphocytes % 6.2 Monocytes % 9.4 Eosinophils % 0.9 Basophils % 0.5 Nucleated RBC % 0.0 Absolute Neutrophils 10.53 H Absolute Lymphocytes 0.79 L Absolute Monocytes 1.20 H Absolute Eosinophils 0.11 Absolute Basophils 0.06 VBG pH VBG pCO2 VBG pO2 VBG HCO3 VBG Total CO2 VBG O2 Saturation VBG Base Excess VBG Lactate Sodium 139 Potassium 4.2 Chloride 99 Carbon Dioxide 22.2 Anion Gap 17.8 H BUN 114 H* Creatinine 10.8 H* Est GFR (CKD-EPI 2020) 4.35 Glucose 122 H Uric Acid Calcium 7.9 L Phosphorus Magnesium 1.8 Ferritin Total Bilirubin 1.2 H AST 7 L ALT 7 L Alkaline Phosphatase 58 Creatine Kinase Troponin I < 50 NT-Pro-B Natriuret Pep Cancelled 7396 H Total Protein 7.0 Albumin 3.2 L Vitamin B12 Folate Procalcitonin TSH Free T4 Urine Color Urine Clarity Urine pH Ur Specific [place] Urine Protein Urine Ketones Urine Blood Urine Nitrite Urine Bilirubin Urine Urobilinogen Ur Leukocyte Esterase Urine RBC Urine WBC Ur Epithelial Cells Urine Crystals Urine Bacteria Urine Casts Urine Mucus Ur Culture Indicated? Ur Random Creatinine Urine Glucose Add-On Test Request Patient ABO/Rh Antibody Screen 08/13/22 08/13/22 08/13/22 11:00 11:00 11:00 WBC RBC Hgb Hct MCV MCH MCHC RDW Plt Count MPV Immature Gran % Neutrophils % Lymphocytes % Monocytes % Eosinophils % Basophils % Nucleated RBC % Absolute Neutrophils Absolute Lymphocytes Absolute Monocytes Absolute Eosinophils Absolute Basophils VBG pH VBG pCO2 VBG pO2 VBG HCO3 VBG Total CO2 VBG O2 Saturation VBG Base Excess VBG Lactate Sodium Potassium Chloride Carbon Dioxide Anion Gap BUN Creatinine Est GFR (CKD-EPI 2020) Glucose Uric Acid 12.0 H Calcium Phosphorus 9.7 H Magnesium 1.9 Ferritin Total Bilirubin AST ALT Alkaline Phosphatase Creatine Kinase 59 Troponin I NT-Pro-B Natriuret Pep Total Protein Albumin Vitamin B12 Folate Procalcitonin TSH 0.93 Free T4 1.33 Urine Color Urine Clarity Urine pH Ur Specific [place] Urine Protein Urine Ketones Urine Blood Urine Nitrite Urine Bilirubin Urine Urobilinogen Ur Leukocyte Esterase Urine RBC Urine WBC Ur Epithelial Cells Urine Crystals Urine Bacteria Urine Casts Urine Mucus Ur Culture Indicated? Ur Random Creatinine Urine Glucose Add-On Test Request DONE Patient ABO/Rh Antibody Screen 08/13/22 08/13/22 08/13/22 11:00 17:00 17:00 WBC RBC Hgb Hct MCV MCH MCHC RDW Plt Count MPV Immature Gran % Neutrophils % Lymphocytes % Monocytes % Eosinophils % Basophils % Nucleated RBC % Absolute Neutrophils Absolute Lymphocytes Absolute Monocytes Absolute Eosinophils Absolute Basophils VBG pH 7.33 VBG pCO2 42 VBG pO2 32 VBG HCO3 22 L VBG Total CO2 21 L VBG O2 Saturation 62 VBG Base Excess -4 L VBG Lactate 1.6 H Sodium Potassium Chloride Carbon Dioxide Anion Gap BUN Creatinine Est GFR (CKD-EPI 2020) Glucose Uric Acid Calcium Phosphorus Magnesium Ferritin Total Bilirubin AST ALT Alkaline Phosphatase Creatine Kinase Troponin I NT-Pro-B Natriuret Pep Total Protein Albumin Vitamin B12 Folate Procalcitonin 0.2 TSH Free T4 Urine Color Urine Clarity Urine pH Ur Specific [place] Urine Protein Urine Ketones Urine Blood Urine Nitrite Urine Bilirubin Urine Urobilinogen Ur Leukocyte Esterase Urine RBC Urine WBC Ur Epithelial Cells Urine Crystals Urine Bacteria Urine Casts Urine Mucus Ur Culture Indicated? Ur Random Creatinine Urine Glucose Add-On Test Request Patient ABO/Rh Antibody Screen 08/13/22 08/13/22 08/14/22 17:50 17:50 05:45 WBC RBC Hgb Hct MCV MCH MCHC RDW Plt Count MPV Immature Gran % Neutrophils % Lymphocytes % Monocytes % Eosinophils % Basophils % Nucleated RBC % Absolute Neutrophils Absolute Lymphocytes Absolute Monocytes Absolute Eosinophils Absolute Basophils VBG pH VBG pCO2 VBG pO2 VBG HCO3 VBG Total CO2 VBG O2 Saturation VBG Base Excess VBG Lactate Sodium 143 Potassium 4.0 Chloride 101 Carbon Dioxide 27.0 Anion Gap 15.0 H BUN 112 H* Creatinine 9.8 H* Est GFR (CKD-EPI 2020) 4.89 Glucose 90 Uric Acid Calcium 8.8 Phosphorus 9.8 H Magnesium 1.9 Ferritin 337 Total Bilirubin AST ALT Alkaline Phosphatase Creatine Kinase Troponin I NT-Pro-B Natriuret Pep Total Protein Albumin Vitamin B12 Folate Procalcitonin TSH Free T4 Urine Color [place] Urine Clarity Cloudy Urine pH 7.0 Ur Specific [place] 1.015 Urine Protein 100 H Urine Ketones Negative Urine Blood Large H Urine Nitrite Negative Urine Bilirubin Negative Urine Urobilinogen 0.2 Ur Leukocyte Esterase Negative Urine RBC >50 H Urine WBC 0-2 Ur Epithelial Cells Rare Urine Crystals Negative Urine Bacteria Rare Urine Casts Negative Urine Mucus Negative Ur Culture Indicated? C&S Done As Ordered Ur Random Creatinine 25.54 Urine Glucose Negative Add-On Test Request Patient ABO/Rh Antibody Screen 08/14/22 08/14/22 08/14/22 05:45 05:45 06:55 WBC 9.66 RBC 3.71 L Hgb 11.5 L Hct 35.0 L MCV 94 MCH 31.0 MCHC 32.9 RDW 14.6 H Plt Count 157 MPV 10.5 Immature Gran % 0.7 Neutrophils % 76.2 Lymphocytes % 11.4 Monocytes % 9.9 Eosinophils % 1.3 Basophils % 0.5 Nucleated RBC % 0.0 Absolute Neutrophils 7.35 H Absolute Lymphocytes 1.10 L Absolute Monocytes 0.96 H Absolute Eosinophils 0.13 Absolute Basophils 0.05 VBG pH VBG pCO2 VBG pO2 VBG HCO3 VBG Total CO2 VBG O2 Saturation VBG Base Excess VBG Lactate Sodium Potassium Chloride Carbon Dioxide Anion Gap BUN Creatinine Est GFR (CKD-EPI 2020) Glucose Uric Acid Calcium Phosphorus Magnesium Ferritin Total Bilirubin AST ALT Alkaline Phosphatase Creatine Kinase Troponin I NT-Pro-B Natriuret Pep Total Protein Albumin Vitamin B12 265 Folate 6.9 L Procalcitonin TSH Free T4 Urine Color Urine Clarity Urine pH Ur Specific [place] Urine Protein Urine Ketones Urine Blood Urine Nitrite Urine Bilirubin Urine Urobilinogen Ur Leukocyte Esterase Urine RBC Urine WBC Ur Epithelial Cells Urine Crystals Urine Bacteria Urine Casts Urine Mucus Ur Culture Indicated? Ur Random Creatinine Urine Glucose Add-On Test Request Patient ABO/Rh O Positive Antibody Screen NEGATIVE Time Spent with Patient Time Spent with Patient: 35-49 minutes Time was spent: preparing to see the patient(eg.review tests), obtaining and/or reviewing separately otained hiistory, ordering medications,tests, procedures, referring, communicating with other health caretaker resort, indepentently interpreting results, counseling the patient and care coordination
--- NOTE | 2022-08-14 10:37 | IN_ITS ---
Date of service: 08/14/22 Time of Service: 10:07 PT Notes Visit Reasons: MEDARDO, Likely Acute Cardiorenal Syndrome Physical Therapy Inpatient Initial Evaluation Date: 08/14/2022 Referring Doctor: Ivana Lucero MD PT Orders: PT CONSULT: Limited ability Precautions: Fall. Standard. Activity as tolerated. Patient Profile/Admitting Diagnosis: Jacob is an 82-year-old male who was admitted to the ED on 08/13/2022 due to bilateral lower extremity edema that was worsening over the past 2 weeks. Patient is admitted for management of acute kidney injury, urinary retention, high anion gap metabolic acidosis, cardiomyopathy hyperbilirubinemia, elevated uric acid in blood, leukocytosis, anemia, and atrial fibrillation. PMHX: All Active Problems?(Updated 08/13/22 @ 17:13 by Ivana Lucero MD) Discharge planning issues (Acute) DVT prophylaxis (Acute) Urinary retention (Acute) MEDARDO (acute kidney injury) (Acute) Hyperbilirubinemia (Acute) Hypocalcemia (Acute) Elevated uric acid in blood (Acute) High anion gap metabolic acidosis (Acute) Anemia (Chronic) Leukocytosis (Acute) Acute renal failure due to urinary obstruction (Acute) Congestive heart failure (Chronic) Post herpetic neuralgia (Acute) Toe swelling (Acute) Atrial fibrillation with RVR (Acute) Mitral regurgitation (Chronic) Hypertension (Chronic) Cardiomyopathy (Acute) Osteoarthritis of knee (Acute) Tobacco dependence syndrome (Acute 09/17/11) Unspecified essential hypertension (Chronic 03/11/93) 1993 Primary osteoarthritis of both knees (Chronic) Plan is to continue [place] supplem follow-up with me in 6 months unless there is some intercurrent worsening of his symptomatology.? Entation of both knees.? The patient inquires whether or not a brace would be of help.? I think a simple elastic knee sleeve such as a copper fit brace is most suitable t o him.? I would recommend an extra large size.? 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 inj train), sciatica , djd pain (also Oj); no NSAID's due to GI bleed (2015) Osteoarthritis of knee (Chronic) LEFT PATRIZIA; INJ DREISBACH; DJD Hyperlipidemia (Chronic 11/09/00) risk 25% 11/2000, patrizia smoking, low HDL; goal LDL<100 Esophagitis determined by endoscopy (Chronic 03/09/16) EGD 02/29/16; Melena on Apixaban Chronic anticoagulation (Chronic 10/15/16) Apixaban Atrial fibrillation (Chronic 12/10/11) H/O EPISODES LIKELY FOR 2 YRS; EF 52%, NL TSH; Heitzman; noted 12/10/11 office , Apixaban 2015; EF 60% 11/2014 ECHO Surgical History?(Updated 08/13/22 @ 17:13 by Ivana Lucero MD) egd (02/29/16) [facility] Yariel H/O umbilical hernia repair Hx of appendectomy S/P tonsillectomy Social History/Home Situation: Lives with in a handicap-accessible residence. Uses a front wheeled walker for baseline mobility indoors and outdoors. 2 falls in the past year. Equipment Owned/DME: 4WW, FWW Subjective: Agreeable to consult with hopes of being able to go home soon when medically cleared. Denies headache, chest pain, and lightheadedness throughout ambulation activity. Reports decreased swelling in bilateral lower extremity since admission. Objective: General Observation: Supine in bed. Telemetry monitoring in place. Urine in Goyal bag sanguinous. Swelling in B legs and feet noted. Mental Status: Alert and oriented as to person, place, time, and purpose. Able to pay attention, focus, and respond appropriately. Pain: Denies Vital Signs: WNL as closely monitored via telemetry ROM: Right Upper Extremity: Shoulder Flexion WFL. Shoulder abduction WFL. Elbow flexion WFL. Wrist flexion WFL. Functional opening and closing of hand WFL. Left Upper Extremity: Shoulder Flexion WFL. Shoulder abduction WFL. Elbow flexion WFL. Wrist flexion WFL. Functional opening and closing of hand WFL. Right Lower Extremity: Hip flexion WFL. Hip abduction WFL. Knee flexion WFL. Ankle dorsiflexion WFL. Ankle plantarflexion WFL. Left Lower Extremity: Hip flexion WFL. Hip abduction WFL. Knee flexion WFL. Ankle dorsiflexion WFL. Ankle plantarflexion WFL. Strength: Right Upper Extremity: Shoulder flexors 4-/5. Shoulder abductors 4-/5. Elbow flexors 4-/5. Elbow extensors 4-/5. Aluminum Shingle Roofer strong. Left Upper Extremity: Shoulder flexors 4-/5. Shoulder abductors 4-/5. Elbow flexors 4-/5. Elbow extensors 4-/5. Aluminum Shingle Roofer strong. Right Lower Extremity: Hip flexors 4-/5. Hip abductors 4-/5. Knee flexors 4-/5. Knee extensors 4-/5. Ankle dorsiflexors 4-/5. Ankle plantarflexors 4-/5. Left Lower Extremity: Hip flexors 4-/5. Hip abductors 4-/5. Knee flexors 4-/5. Knee extensors 4-/5. Ankle dorsiflexors 4-/5. Ankle plantarflexors 4-/5. Bed Mobility/Transfers: Supine to sit standby assist Sit to stand standby assist with FWW Stand to sit standby assist with FWW Gait: Instructed patient with level surface ambulation of 100 feet requiring standby assist. Zora decreased. Step height decreased. Step length decrased. No LOB. No SOB. HR high of 123 bpm with quick return down to 112 bpm. Balance: Static Sitting: Normal Dynamic Sitting: Normal Static Standing: Fair Dynamic Standing: Fair Special Tests: -Mobility Limitations Standardized Measure [facility] 6 clicks Basic Mobility Inpatient Short Form: Raw Score: 23 CMS Score: 11% deficit -30-second chair rise score of 5x indincating B LE weakness -4-stage balance test: Unable to maitain all 4 positions for 10 seconds indicating fall risk. Informed Consent/Education: Patient was instructed in purpose of PT consult and plan of care. Agreeable to proceed with established PT POC to achieve personal goals. Assessment: Patient presents with clinical signs and symptoms consistent with current/admitting diagnoses that have resulted to mobility limitations, gait instability, generalized weakness, and overall ADL decline as demonstrated by the following impairment level findings: 1. Decreased strength to B UE/LE major muscle groups 2. Impaired sitting/standing balance 3. Impaired activity tolerance 4. Swelling in B LE Impairments are contributing to the following functional limitations: 1. Decline in bed mobility skills 2. Decline in transfer skills 3. Difficulty with ambulation without assistive device and physical assistance 4. Increased completion time for mobility ADL performance 5. Increased risk for falls 6. Difficulty with managing steps alone safely Patient is assessed as a [id number] moderate complexity based on the following: History: 82-year-old male with past medical history as indicated above Examination: Demonstrable impairment in strength, balance, and mobility level with underlying impairments and functional limitations as exhibited above as well as deficit score of 11% utilizing the [facility] Mobility Inpatient Short Form Presentation: Evolving Decision Makin moderate complexity Goals: Goals X1 week 1. Supine-Sit independent 2. Sit-Supine independent 3. Sit-Stand independent 4. Stand-Sit independent with FWW 5. Bed-Chair independent with FWW 6. Chair-Bed independent with FWW 7. Independent gait on level surface with use of FWW for at least 200 feet without report of pain nor dyspnea 8. Independent with home exercise program 9. Good static and dynamic standing balance/tolerance Plan of Care/Treatment Plan: 1-2x/day, 7 days/week x 1 week. Plan of care has been reviewed with the [facility] providing the service under Physical Therapy direction. Initiate Physical Therapy intervention for pain management as needed, strengthening, bed mobility, transfers, gait, stairs, balance training, and use of assistive device. DISCHARGE RECOMMENDATIONS: [] Home with no services [] [X] Home with services. Patient will benefit from home health PT services in order to progress mobility level using least restrictive assistive ambulatory device, assess home safety, identify additional equipment needs, and establish a functional maintenance program that will increase ability of patient to remain at home. [] Home with outpatient PT [] [] SNF for continued rehabilitation [] [] Property Condition Assessor Care [] [] SNF versus LTC based on ability to participate and progress [] TREATMENT CODE/TIME: 23210 x 25 minutes beginning at 10:07 AM. Thank you for the opportunity to participate in the care of this patient. Rabia Pablo PT, DPT, CLT [facility] [place], [place]
[2022-08-14] MEDS: Docusate Sodium 100 MG CAP PO (10:40)
[2022-08-14] MEDS: Allopurinol 100 MG TAB PO (10:40)
[2022-08-14] MEDS: Tamsulosin 0.4 MG CAPCR PO (10:40)
[2022-08-14] MEDS: Calcium Carbonate 1.25 GM TAB PO ×2 (10:41→20:18)
[2022-08-14] MEDS: Carvedilol 25 MG TAB PO ×2 (10:41→20:18)
[2022-08-14] MEDS: Apixaban 2.5 MG TAB PO ×2 (10:41→20:18)
[2022-08-14] MEDS: Folic Acid 1 MG TAB PO (10:42)
[2022-08-14] MEDS: Lidocaine 5% Patch 1 PATCH TP (12:15)
--- NOTE | 2022-08-14 12:20 | INITIAL_ITS ---
Date of service: 08/14/22 Time of Service: 12:20 Care Management Initial Assmt Initial Assessment REASON FOR HOSPITALIZATION:: MEDARDO, Likely acute cardiorenal syndrome PREVIOUS FUNCTIONAL STATUS/SOCIAL/FAMILY SUPPORTS:: Resides in [place] with , Kimberly. Supportive family including son, Tico. CURRENT FUNCTIONAL STATUS:: Jacob would like to return home as soon as possible, he is not interested in surgical intervention. ADVANCE DIRECTIVES:: None on file. Has patient been provided with info about the portal/API?: Yes Did the patient sign up for the portal?: No CODE STATUS:: DNR/DNI INSURANCE COVERAGE / FINANCIAL ISSUES:: Medicare, Financial asst 100 PRIMARY CARE PHYSICIAN:: Matthew Parsons POTENTIAL DISCHARGE NEEDS:: Urology, Palliative and PT consults. PATIENT/FAMILY EDUCATION NEEDS:: Review discharge instructions, discuss Ask Me Three. ANTICIPATED BARRIERS TO DISCHARGE:: None identified. TRANSPORTATION:: Via private vehicle with family. PLAN:: Jacob will return home when ready per MD, awaiting pending consults, ECHO results. He will follow up with his PCP and plan of care as prescribed. CM continues to follow. PFSH All Active Problems (Updated 08/14/22 @ 09:31 by Ivana Lucero MD) Gross hematuria (Acute) Lethargy (Acute) Discharge planning issues (Acute) DVT prophylaxis (Acute) Urinary retention (Acute) MEDARDO (acute kidney injury) (Acute) Hyperbilirubinemia (Acute) Hypocalcemia (Acute) Elevated uric acid in blood (Acute) High anion gap metabolic acidosis (Acute) Anemia (Chronic) Acute renal failure due to urinary obstruction (Acute) Congestive heart failure (Chronic) Post herpetic neuralgia (Acute) Toe swelling (Acute) Atrial fibrillation with RVR (Acute) Mitral regurgitation (Chronic) Hypertension (Chronic) Cardiomyopathy (Acute) Osteoarthritis of knee (Acute) Tobacco dependence syndrome (Acute 09/17/11) Unspecified essential hypertension (Chronic 03/11/93) 1994 Primary osteoarthritis of both knees (Chronic) Plan is to continue [place] supplem follow-up with me in 6 months unless there is some intercurrent worsening of his symptomatology. Entation of both knees. The patient inquires whether or not a brace would be of help. I think a simple elastic knee sleeve such as a copper fit brace is most suitable to him. I would recommend an extra large size. 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), sciatica 07, djd pain (also Dreisbach); no NSAID's due to GI bleed (2015) Osteoarthritis of knee (Chronic) LEFT PATRIZIA; INJ DREISBACH; DJD Hyperlipidemia (Chronic 11/09/00) risk 25% 11/2000, patrizia smoking, low HDL; goal LDL<100 Esophagitis determined by endoscopy (Chronic 03/09/16) EGD 02/29/16; Melena on Apixaban Chronic anticoagulation (Chronic 10/15/16) Apixaban Atrial fibrillation (Chronic 12/10/11) H/O EPISODES LIKELY FOR 2 YRS; EF 52%, NL TSH; Heitzman; noted 12/10/11 office, Apixaban 2015; EF 60% 11/2014 ECHO Surgical History (Updated 08/13/22 @ 17:13 by Ivana Lucero MD) egd (02/29/16) [facility] Yariel H/O umbilical hernia repair Hx of appendectomy S/P tonsillectomy Family History (Updated 08/13/22 @ 17:12 by Ivana Lucero MD) Mother , fluid in lungs at age 57. 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 Pets and animals: Yes Pets and animals: dog(s) Sexually active: No Do you think of yourself as: straight/heterosexual Current gender identity: male What is your relationship status?: How often do you talk on the phone with friends or family?: three or more times per week How often do you get together with friends or relatives?: never How often do you attend jain or judaism services?: decline to answer Do you belong to any clubs or organized social groups?: no Panel score (0-1 are the most socially isolated patients): 2 What type of physical activity do you participate in: none Seatbelt use: sometimes Drive intox or ride w/intox 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
[2022-08-14 13:17] LABS: Iron 54 ug/dL (65-175); Total Iron Binding Capacity 229 ug/dL (250-450); Transferrin Sat 24 % (20-55)
--- NOTE | 2022-08-14 14:20 | PT.INTREAT ---
Date of service: 08/14/22 Time of Service: 14:04 PT Notes Visit Reasons: MEDARDO, Likely Acute Cardiorenal Syndrome Inpatient Physical Therapy Treatment Note [facility] Date: 08/14/22 PRECAUTIONS: Fall, standard, activity as tolerated. SUBJECTIVE: Patient indicates that he is ready to go home, would like to go home, misses his dog. OBJECTIVE: PAIN: none reported BED MOBILITY/TRANSFERS Rolling L/R: independent Supine-sit: independent Sit-supine: independent Sit-stand: standby Stand-sit: standby Bed-Chair: contact guard Chair-bed: contact guard GAIT Assistive Device: front wheeled walker Weight bearing: full Assist: contact guard Distance: 550 feet Deviation: no loss of balance, no shortness of breath, no pain, moderate walking speed. Patient able to keep up a conversation at a relatively brisk pace. ASSESSMENT: patient tolerates therapy extremely well, is sitting comfortably at edge of bed at end of session with call foster within reach and RN notified. PLAN: continue strengthening per plan of care until patient is medically cleared for discharge. TREATMENT CODE/TIME: [id number] gait 14 minutes beginning at 14:04
[2022-08-14 18:00] LABS: Urea Nitrogen Random Urine 223 mg/dL (See Note)
[2022-08-14 18:54] LABS: Anion Gap 14.5 mmol/L (3-11); CO2 25.5 mmol/L (21.0-32.0); Calcium 8.2 mg/dL (8.5-10.1); Chloride 100 mmol/L (98-107); Glucose 162 mg/dL (74-106); Potassium 3.2 mmol/L (3.5-5.1); Sodium 140 mmol/L (136-145)
[2022-08-14 18:56] LABS: BUN 103 mg/dL (7-18); CREATININE 8.5 mg/dL (0.70-1.30)
[2022-08-14] MEDS: Lidocaine Patch Removal 1 EACH TP (23:19)
[2022-08-15] VITALS (7 sets, daily range): BP systolic 94–120; BP diastolic 53–79; PULSE 78–98; RESP 17–18; TEMP 36.1–36.5; O2SAT 91–99
[2022-08-15 07:06] LABS: Abs Immature Grans 0.03 10^3/uL (0.0-0.06); Absolute Basophil Count 0.07 10^3/uL (0.0-0.2); Absolute Eosinophil Count 0.25 10^3/uL (0.0-0.7); Absolute Lymphocyte Count 1.28 10^3/uL (1.2-3.4); Absolute Monocyte Count 1.05 10^3/uL (0.1-0.8); Absolute Neutrophil Count 7.07 10^3/uL (1.2-6.7); Basophils % 0.7; Eosinophils % 2.6; HCT 37.5 % (40.0-50.0); HGB 12.4 g/dL (13.5-17.5); Immature Grans % 0.3; Lymphocytes % 13.1; MCH 30.8 pg (27.0-33.0); MCHC 33.1 % (32.0-36.0); MCV 93 fL (80-95); MPV 10.1 fL (8.0-11.0); Monocytes % 10.8; Neutrophils % 72.5; Platelet Count 175 10^3/uL (130-400); RBC 4.02 10^6/uL (4.36-5.78); RDW 14.3 % (11.8-14.1); RDW-SD 48.9 fL; WBC 9.75 10^3/uL (4.4-10.8)
[2022-08-15 07:29] LABS: Anion Gap 14.5 mmol/L (3-11); CO2 28.5 mmol/L (21.0-32.0); Calcium 8.4 mg/dL (8.5-10.1); Chloride 103 mmol/L (98-107); Estimated GFR 7.08 (mL/min/1.73m2); Glucose 94 mg/dL (74-106); Magnesium 1.6 mg/dL (1.8-2.4); Potassium 3.1 mmol/L (3.5-5.1); Sodium 146 mmol/L (136-145)
[2022-08-15 07:43] LABS: BUN 96 mg/dL (7-18); CREATININE 7.2 mg/dL (0.70-1.30)
[2022-08-15] MEDS: Potassium Chloride 20 MEQ TABCR 40 MEQ PO ×3 (08:43→21:35)
[2022-08-15] MEDS: Carvedilol 25 MG TAB PO ×2 (08:46→21:35)
[2022-08-15] MEDS: Apixaban 2.5 MG TAB PO ×2 (08:46→21:35)
[2022-08-15] MEDS: Calcium Carbonate 1.25 GM TAB PO (08:46)
[2022-08-15] MEDS: Allopurinol 100 MG TAB PO (08:46)
[2022-08-15] MEDS: Tamsulosin 0.4 MG CAPCR PO (08:47)
[2022-08-15] MEDS: Docusate Sodium 100 MG CAP PO (08:47)
[2022-08-15] MEDS: Cyanocobalamin 500 MCG TAB 1000 MCG PO (08:47)
[2022-08-15] MEDS: MAGNESIUM SULFATE 2 GM/50 ML BAG IVPB (08:47)
[2022-08-15] MEDS: Folic Acid 1 MG TAB PO (08:47)
[2022-08-15] MEDS: Lidocaine 5% Patch 1 PATCH TP (10:14)
[2022-08-15 12:39] LABS: HBs Antibody, Qual Negative (See Note); HBs Antibody, Quant <3.1 mIU/mL (See Note); Hepatitis B Core Antibody Negative (Negative); Hepatitis B surface Ag Negative (Negative); Hepatitis C Ab w Rflx HCV PCR Negative (Negative)
[2022-08-15] MEDS: Cyanocobalamin 1000 MCG/ML VIAL IM/SC (13:05)
--- NOTE | 2022-08-15 14:22 | CMPROGNOTE_ITS ---
Date of service: 08/15/22 Time of Service: 14:22 Care Management Progress Note Progress Note Text Progress Note Text: S/O: Per MD, awaiting repeat labs-not anticipated to recieve until this evening. Possibility of late discharge, or Jacob may remain in [facility] overnight. A: 82 year old male admitted to [facility] 08/13/22 for MEDARDO, likely acute cardiorenal syndrome P: Jacob will return home when ready per MD, follow up with his PCP, Urology and his plan of care as prescribed. He will transport via private vehicle with family. CM continues to follow.
--- NOTE | 2022-08-15 14:38 | PT.INTREAT ---
Date of service: 08/15/22 Time of Service: 10:00 PT Notes Visit Reasons: MEDARDO, Likely Acute Cardiorenal Syndrome Inpatient Physical Therapy Treatment Note [facility] Date: 08/15/22 PRECAUTIONS: Fall, standard, activity as tolerated SUBJECTIVE: Patient wants to go home. 3 family members present in the morning. Patient sitting up in chair, agreeable to therapy, questioning where the doctor is both in morning and afternoon. OBJECTIVE: PAIN: none reported BED MOBILITY/TRANSFERS Sit-stand: standby Stand-sit: standby Bed-Chair: standby Chair-bed: standby GAIT Assistive Device: front wheeled walker Weight bearing: full Assist: standby Distance: 520 feet Deviation: reduced step height, reduced step length, head forward posture. THEREX: Seated LE strengthening exercises including marches, long arc quads, heel raises, toe raises, hip ab/adduction. ASSESSMENT: Patient tolerates therapy well, both in the morning and afternoon. Patient is eager to go home. PLAN: Continue strengthening per plan of care until patient is medically cleared for discharge. TREATMENT CODE/TIME: mornin Ther Ex 15 minutes, 37040 Ther Act 9 minutes starting at 10:00. Afternoon: [id number] Gait 26 minutes beginning at 13:29
[2022-08-15 16:42] LABS: Anion Gap 11.7 mmol/L (3-11); CO2 28.3 mmol/L (21.0-32.0); Calcium 8.4 mg/dL (8.5-10.1); Chloride 100 mmol/L (98-107); Estimated GFR 8.63 (mL/min/1.73m2); Glucose 122 mg/dL (74-106); Potassium 3.3 mmol/L (3.5-5.1); Sodium 140 mmol/L (136-145)
[2022-08-15 16:44] LABS: BUN 87 mg/dL (7-18); CREATININE 6.1 mg/dL (0.70-1.30)
--- NOTE | 2022-08-15 19:39 | W.PM.PROGNOT ---
Date of Service Date of service: 08/15/22 Time of Service: 19:39 Assessment and Plan Assessment and plan (1) MEDARDO (acute kidney injury): Status: Acute Assessment and plan: Primarily obstructive/post-renal. FeUrea is 82.7%, suggesting intrinsic renal disease also. Patient is going through post-obstructive diuresis at this time. There is no evidence right now that there is a cardiorenal component. His Cr is down to 6.1. LVEF on echo is 50-55%. CT abdomen/pelvis with diffuse thickening of the bladder wall c/w chronic bladder outlet obstruction. He does have L ureteral distention and evidence of a bladder stone. There is prostatomegaly. Appreciate urology help: continue flomax. Continue supplementation of calcium. Does have hyperphosphatemia. No evidence of hyerkalemia. Continue allopurinol for hyperuricemia. Will continue to hold off of additional diuresis at this time - he is more than adequately diuresing on his own. Monitor Cr, I/Os, daily weights. Replete and monitor lytes. (2) Gross hematuria: Status: Acute Assessment and plan: Evaluated by Dr Schwab. Recommends manual irrigation. Would continue anticoagulation unless hematuria worsens. (3) Urinary retention: Status: Acute Assessment and plan: As above. Continue flomax. Does have prostatomegaly. Decreased dose of percocet. Constipation has resolved - will need to stay on a bowel regimen. (4) High anion gap metabolic acidosis: Status: Acute Assessment and plan: Suspect this is due to above and it should improve with treatment of MEDARDO. This is compensated. Will continue to monitor serial chemistries. (5) Cardiomyopathy: Status: Acute Assessment and plan: LVEF of 50-55% on echo. I do not think that the patient's lower extremity edema was of cardiac origin - rather, it reflected his poor kidney function. Qualifiers: Cardiomyopathy type: unspecified Qualified Code(s): I42.9 - Cardiomyopathy, unspecified (6) Congestive heart failure: Status: Ruled-out Assessment and plan: As above Edema is due to renal failure. It is improving. Will wrap legs in homer wraps. (7) Hyperbilirubinemia: Status: Acute Assessment and plan: Hepatitis panel negative. This could be due to passive fluid congestion given the MEDARDO/obstructive uropathy. Recheck LFTs in am. (8) Hypocalcemia: Status: Acute Assessment and plan: Replete (9) Elevated uric acid in blood: Status: Acute Assessment and plan: Has a h/o gout. I doubt that this is due to tumor lysis syndrome. Continue allopurinol. (10) Leukocytosis: Status: Resolved Assessment and plan: reactive due to acute urinary retention. No evidence of a UTI. Leucocytosis has resolved with decompression of the bladder. Would not start antibiotics at this time. (11) Anemia: Status: Chronic Assessment and plan: Has evidence of B12/folate deficiencies - replete. Does have hematuria right now, but not to the point of needing to stop anticoagulation. Monitor H/H. Await hematest. (12) Atrial fibrillation: Status: Chronic Assessment and plan: Rate controlled. Continue renally dosed apixaban. Continue coreg. Qualifiers: Atrial fibrillation type: permanent Qualified Code(s): I48.2 - Chronic atrial fibrillation (13) DVT prophylaxis: Status: Acute Assessment and plan: On therapeutic apixaban (14) Discharge planning issues: Status: Acute Assessment and plan: DNR/DNI Continues to require hospitalization. May benefit form home health nursing as will need to go home with a johns catheter. Subjective Subjective Interval history since last seen: Mr Meraz feels better. His legs feels better. Denies dizziness/CP/SOB/n/v. UOP is 2900 cc since midnight today. Exam Narrative Exam Narrative: General: Pleasant elderly male who is A&Ox3, laying comfortably nearly flat in bed on RA, no dyspnea/tachypnea/cyanosis. HEENT: EOMI, MMM Cardiovascular: irregularly irregular rhythm, no m/r/g Lungs: CTAB Gastrointestinal: soft, nontender, nondistended Genitourinary: has a johns - pink urine in bag Extremities: 3+ pitting edema B, symmetric, slight improvement Objective Last Vital Signs Temp 36.3 C L 08/15/22 14:59 Pulse 89 08/15/22 14:59 Resp 17 08/15/22 14:59 BP 100/69 08/15/22 14:59 Pulse Ox 97 08/15/22 14:59 Laboratory Results - last 24 hr 08/13/22 08/14/22 08/15/22 17:50 05:45 06:35 WBC RBC Hgb Hct MCV MCH MCHC RDW Plt Count MPV Immature Gran % Neutrophils % Lymphocytes % Monocytes % Eosinophils % Basophils % Nucleated RBC % Absolute Neutrophils Absolute Lymphocytes Absolute Monocytes Absolute Eosinophils Absolute Basophils Sodium 146 H Potassium 3.1 L Chloride 103 Carbon Dioxide 28.5 Anion Gap 14.5 H BUN 96 H* Creatinine 7.2 H* Est GFR (CKD-EPI 2020) 7.08 Glucose 94 Calcium 8.4 L Magnesium 1.6 L Urine Urea Nitrogen 223 Hep Bs Antigen Negative Hep Bs Antibody Negative Hep Bs Antibody, Quant <3.1 Hep B Core Total Ab Negative Hepatitis C Antibody Negative 08/15/22 08/15/22 06:35 16:15 WBC 9.75 RBC 4.02 L Hgb 12.4 L Hct 37.5 L MCV 93 MCH 30.8 MCHC 33.1 RDW 14.3 H Plt Count 175 MPV 10.1 Immature Gran % 0.3 Neutrophils % 72.5 Lymphocytes % 13.1 Monocytes % 10.8 Eosinophils % 2.6 Basophils % 0.7 Nucleated RBC % 0.0 Absolute Neutrophils 7.07 H Absolute Lymphocytes 1.28 Absolute Monocytes 1.05 H Absolute Eosinophils 0.25 Absolute Basophils 0.07 Sodium 140 Potassium 3.3 L Chloride 100 Carbon Dioxide 28.3 Anion Gap 11.7 H BUN 87 H* Creatinine 6.1 H* Est GFR (CKD-EPI 2020) 8.63 Glucose 122 H Calcium 8.4 L Magnesium Urine Urea Nitrogen Hep Bs Antigen Hep Bs Antibody Hep Bs Antibody, Quant Hep B Core Total Ab Hepatitis C Antibody Time Spent with Patient Time Spent with Patient: 35-49 minutes Time was spent: preparing to see the patient(eg.review tests), obtaining and/or reviewing separately otained hiistory, ordering medications,tests, procedures, referring, communicating with other health patient care representative, indepentently interpreting results, counseling the patient and care coordination
[2022-08-15] MEDS: Lidocaine Patch Removal 1 EACH TP (21:50)
[2022-08-16 06:39] LABS: Abs Immature Grans 0.06 10^3/uL (0.0-0.06); Absolute Basophil Count 0.07 10^3/uL (0.0-0.2); Absolute Eosinophil Count 0.42 10^3/uL (0.0-0.7); Absolute Monocyte Count 1.24 10^3/uL (0.1-0.8); Basophils % 0.5; Eosinophils % 3.1; HCT 38.2 % (40.0-50.0); HGB 12.5 g/dL (13.5-17.5); Immature Grans % 0.4; Lymphocytes % 6.5; MCH 31.3 pg (27.0-33.0); MCHC 32.7 % (32.0-36.0); MCV 96 fL (80-95); MPV 10.3 fL (8.0-11.0); Monocytes % 9.2; Neutrophils % 80.3; Platelet Count 182 10^3/uL (130-400); RBC 3.99 10^6/uL (4.36-5.78); RDW 14.4 % (11.8-14.1); RDW-SD 50.4 fL; WBC 13.46 10^3/uL (4.4-10.8)
[2022-08-16 06:44] LABS: Absolute Lymphocyte Count 0.87 10^3/uL (1.2-3.4); Absolute Neutrophil Count 10.81 10^3/uL (1.2-6.7)
[2022-08-16 07:07] LABS: ALT 8 U/L (16-63); AST 9 U/L (15-37); Albumin 3.4 g/dL (3.4-5.0); Alkaline Phosphatase 58 U/L (46-116); Bilirubin, Direct 0.4 mg/dL (0.0-0.2); Bilirubin, Total 1.2 mg/dL (0.2-1.0); Total Protein 6.7 g/dL (6.4-8.2)
[2022-08-16 07:11] LABS: Anion Gap 13.9 mmol/L (3-11); BUN 71 mg/dL (7-18); CO2 26.1 mmol/L (21.0-32.0); Calcium 8.3 mg/dL (8.5-10.1); Chloride 103 mmol/L (98-107); Estimated GFR 11.23 (mL/min/1.73m2); Glucose 128 mg/dL (74-106); Magnesium 1.7 mg/dL (1.8-2.4); Potassium 3.3 mmol/L (3.5-5.1); Sodium 143 mmol/L (136-145)
[2022-08-16 07:23] LABS: CREATININE 4.9 mg/dL (0.70-1.30)
[2022-08-16 07:34] VITALS: BP 101/72; PULSE 95; RESP 17; TEMP 37.1; O2SAT 97
[2022-08-16] MEDS: Tamsulosin 0.4 MG CAPCR PO (08:13)
[2022-08-16] MEDS: Calcium Carbonate 1.25 GM TAB PO (08:13)
[2022-08-16] MEDS: Carvedilol 25 MG TAB PO (08:13)
[2022-08-16] MEDS: Folic Acid 1 MG TAB PO (08:13)
[2022-08-16] MEDS: Apixaban 2.5 MG TAB PO (08:13)
[2022-08-16] MEDS: Allopurinol 100 MG TAB PO (08:13)
[2022-08-16] MEDS: Potassium Chloride 20 MEQ TABCR 40 MEQ PO (08:14)
[2022-08-16] MEDS: Cyanocobalamin 500 MCG TAB 1000 MCG PO (08:14)
[2022-08-16 10:19] LABS: Bilirubin Negative (Negative); Blood Large (Negative); Clarity Sl Cloudy (Clear); Glucose Negative (Negative); Ketones Negative (Negative); Leukocyte Esterase Negative (Negative); Nitrite Negative (Negative); Specific Gravity 1.015 (1.005-1.025)
[2022-08-16] MEDS: Lidocaine 5% Patch 1 PATCH TP ×2 (10:28→13:18)
[2022-08-16 10:31] LABS: C & S Indicated? No; RBC >50 HPF (0-2)
--- NOTE | 2022-08-16 10:46 | PHA.REVIEW2 ---
Pharmacy Admission Review - Admission Clinical Review (Last Updated 08/13/22 @ 17:13 by Ivana Lucero MD) Gross hematuria (Acute) Lethargy (Acute) Discharge planning issues (Acute) DVT prophylaxis (Acute) Urinary retention (Acute) MEDARDO (acute kidney injury) (Acute) Hyperbilirubinemia (Acute) Hypocalcemia (Acute) Elevated uric acid in blood (Acute) High anion gap metabolic acidosis (Acute) Acute renal failure due to urinary obstruction (Acute) Atrial fibrillation with RVR (Acute) Cardiomyopathy (Acute) celecoxib Allergy (Unknown, Verified 08/13/22 10:43) SKIN BREAKDOWN, RASH pantoprazole Adverse Reaction (Intermediate, Verified 08/13/22 10:43) diarrhea gabapentin Adverse Reaction (Mild, Verified 08/13/22 10:43) Skin Rash diltiazem Adverse Reaction (Unknown, Verified 08/13/22 10:43) HEADACHES Resuscitation Status DNR/DNI Height 5 ft 9 in Weight 100.5 kg - Renal Dosing Renal Dosing: BUN 71 mg/dL (7-18) H 08/16/22 05:42 Creatinine 4.9 mg/dL (0.70-1.30) H* 08/16/22 05:42 Medications needing adjustments: Reviewed (eCrCl 14 ml/min, creatinine down to 4.9 from 10.8 on admission; apixiban is appropriately dosed) - Anticoagulation Anticoagulation: Hgb 12.5 g/dL (13.5-17.5) L 08/16/22 05:42 Hct 38.2 % (40.0-50.0) L 08/16/22 05:42 Plt Count 182 10^3/uL (130-400) 08/16/22 05:42 Creatinine 4.9 mg/dL (0.70-1.30) H* 08/16/22 05:42 Therapeutic Anticoagulation: Reviewed Medications: Apixaban - Opiate Usage Evaluate Pain Scale/Pains Meds: Reviewed - Relevant Labs Sodium 143 mmol/L (136-145) 08/16/22 05:42 Potassium 3.3 mmol/L (3.5-5.1) L 08/16/22 05:42 Chloride 103 mmol/L (98-107) 08/16/22 05:42 Phosphorus 9.8 mg/dL (2.6-4.7) H 08/14/22 05:45 Magnesium 1.7 mg/dL (1.8-2.4) L 08/16/22 05:42 Electrolytes, C-Reactive P, ESR: Reviewed (hyperphosphatemia d/t MEDARDO -- if chronic issue consider phosphate binder but should resolve with resolution of MEDARDO; corrected calcium = 8.8 so WNL; potassium being repleted orally) - DM Control DM Control: Glucose 128 mg/dL (74-106) H 08/16/22 05:42 - Cardiac Review Cardiac Review: Troponin I < 50 ng/L (<or=60) 08/13/22 11:00 NT-Pro-B Natriuret Pep 7396 pg/mL (<300) H 08/13/22 11:00 NT-Pro-B Natriuret Pep Cancelled 08/13/22 11:00 - Qtc Review QTc: Reviewed (QTc 562 on admission) - IV to PO Switch IV Medications: Reviewed - Home Meds Home Med List reviewed: Reviewed Relevent Home Meds Not ordered & why?: torsemide not ordered (MEDARDO resolving, past-cathetirization)
--- NOTE | 2022-08-16 12:08 | W.PM.PROGNOT ---
Date of Service Date of service: 08/16/22 Time of Service: 12:08 Assessment and Plan Assessment and plan (1) Urinary retention: Status: Acute Assessment and plan: Surgical treatment if it would render him catheter free. With this new information, I would suggest that he be discharged with a Goyal catheter in place when he is stable. We would then see him in the office to arrange for urodynamics to see if he even with a surgical procedure. If he still has some bladder contractility, we can discuss potential surgeries. If his bladder has lost all contractility, he would need to continue with a chronic catheter. Subjective Subjective Interval history since last seen: Since he was last seen, the patient has decided that he might consider a surgical treatment if it would allow him to be catheter free. He is still not considering CIC as an option. Exam Narrative Exam Narrative: He appears comfortable His urine is transparent in the drainage bag He is awake and alert His serum creatinine continues to improve with catheter drainage Objective Last Vital Signs Temp 37.1 C 08/16/22 07:34 Pulse 95 H 08/16/22 07:34 Resp 17 08/16/22 07:34 BP 101/72 08/16/22 07:34 Pulse Ox 97 08/16/22 07:34 Laboratory Results - last 24 hr 08/14/22 08/15/22 08/16/22 05:45 16:15 05:42 WBC RBC Hgb Hct MCV MCH MCHC RDW Plt Count MPV Immature Gran % Neutrophils % Lymphocytes % Monocytes % Eosinophils % Basophils % Nucleated RBC % Absolute Neutrophils Absolute Lymphocytes Absolute Monocytes Absolute Eosinophils Absolute Basophils Sodium 140 143 Potassium 3.3 L 3.3 L Chloride 100 103 Carbon Dioxide 28.3 26.1 Anion Gap 11.7 H 13.9 H BUN 87 H* 71 H Creatinine 6.1 H* 4.9 H* Est GFR (CKD-EPI 2020) 8.63 11.23 Glucose 122 H 128 H Calcium 8.4 L 8.3 L Magnesium 1.7 L Total Bilirubin Conjugated Bilirubin AST ALT Alkaline Phosphatase Total Protein Albumin Urine Color Urine Clarity Urine pH Ur Specific [place] Urine Protein Urine Ketones Urine Blood Urine Nitrite Urine Bilirubin Urine Urobilinogen Ur Leukocyte Esterase Urine RBC Urine WBC Ur Epithelial Cells Urine Crystals Urine Bacteria Urine Mucus Ur Culture Indicated? Urine Glucose Hep Bs Antigen Negative Hep Bs Antibody Negative Hep Bs Antibody, Quant <3.1 Hep B Core Total Ab Negative Hepatitis C Antibody Negative 08/16/22 08/16/22 08/16/22 05:42 05:42 09:45 WBC 13.46 H RBC 3.99 L Hgb 12.5 L Hct 38.2 L MCV 96 H MCH 31.3 MCHC 32.7 RDW 14.4 H Plt Count 182 MPV 10.3 Immature Gran % 0.4 Neutrophils % 80.3 Lymphocytes % 6.5 Monocytes % 9.2 Eosinophils % 3.1 Basophils % 0.5 Nucleated RBC % 0.0 Absolute Neutrophils 10.81 H Absolute Lymphocytes 0.87 L Absolute Monocytes 1.24 H Absolute Eosinophils 0.42 Absolute Basophils 0.07 Sodium Potassium Chloride Carbon Dioxide Anion Gap BUN Creatinine Est GFR (CKD-EPI 2020) Glucose Calcium Magnesium Total Bilirubin 1.2 H Conjugated Bilirubin 0.4 H AST 9 L ALT 8 L Alkaline Phosphatase 58 Total Protein 6.7 Albumin 3.4 Urine Color Yellow Urine Clarity Sl Cloudy Urine pH 7.0 Ur Specific [place] 1.015 Urine Protein 30 H Urine Ketones Negative Urine Blood Large H Urine Nitrite Negative Urine Bilirubin Negative Urine Urobilinogen 1.0 H Ur Leukocyte Esterase Negative Urine RBC >50 H Urine WBC Not Applicable Ur Epithelial Cells Not Applicable Urine Crystals Not Applicable Urine Bacteria Not Applicable Urine Mucus Not Applicable Ur Culture Indicated? No Urine Glucose Negative Hep Bs Antigen Hep Bs Antibody Hep Bs Antibody, Quant Hep B Core Total Ab Hepatitis C Antibody Time Spent with Patient Time Spent with Patient: <25 minutes Time was spent: preparing to see the patient(eg.review tests) and care coordination
--- NOTE | 2022-08-16 13:33 | W.PM.DS.N ---
Date of service: 08/16/22 Time of Service: 13:35 DS: Diagnosis Discharge Diagnosis (1) Urinary retention: Status: Acute Asessment and Plan: Decompressed with johns catheter placement. Prostatomegaly. CT abd/pelvis showed diffuse thickening of the bladder wall c/w chronic bladder outlet obstruction. + L ureteral distention and evidence of a bladder stone. Dr Schwab evaluated and plans to f/u with pt in 2-3 weeks. Urodynamics to be performed. Pt not a likely candidate for intermittent catheterization and will likely require chronic catheter. Tamsulosin 0.4mg daily. (2) Hypocalcemia: Status: Acute Asessment and Plan: Now on Calcium replacement. + hyperphosphatemia. (3) Anemia: Status: Chronic Asessment and Plan: Low normal B12; now being orally supplemented. No significant drop in hemoglobin with hematuria after johns catheter placed. (4) Leukocytosis: Status: Resolved Asessment and Plan: Unclear etiology. UA x 2 negative. CXR w/o acute findings. CBC ordered for the day after admission. (5) Acute renal failure due to urinary obstruction: Status: Acute Asessment and Plan: Primarily obstructive/post-renal secondary to prostatomegaly. However, FeUrea was 82.7% suggestive of intrinsic renal disease as well. Creatinine improved from 10.8 to 4.9. BMP the day after discharge. Continue indwelling johns catheter until urology f/u. (6) Post herpetic neuralgia: Status: Acute Asessment and Plan: Lidoderm patch x 2 to the effected areas. Discharge Plan Disposition Patient Disposition: Home Condition: Improving Discharge Details Reason For Visit: MEDARDO, Likely Acute Cardiorenal Syndrome Admit Date/Time: 08/13/22 14:19 Admit Provider: Ivana Lucero Attending Provider: Ivana Lucero Primary Care Provider: Matthew Parsons [facility] Hospital Course: Mr Rain is an 82 year old male with PMHx of CHFpEF/cardiomyopathy (patient states he is unaware of this diagnosis), Afib on anticoagulation with eliquis, chronic lower extremity edema, CKD stage III (patient unaware of this diagnosis), HTN (unaware of diagnosis),? gout, prostatomegaly (unaware of diagnosis), chronic lower back pain on oxycodone-acetaminophen,? who presented to [facility] ED with c/o acute on chronic lower extremity edema, acutely worse over the last two weeks, despite his PCP increasing the torsemide dose from 20 mg BID to 30 mg BID. The patient has still be making urine at home, but reports that only dribbles came out, and for the last couple of weeks he had to start wearing a diaper became of episodes of incontinence. He states that he has gained 24 lbs in 2 weeks. He does admit that he was told to go to the ED when he saw Dr Lomeli in the office on 07/31/22 so that he could get intravenous diuretics, but at the time he chose not to go. He denied fevers, CP, SOB, orthopnea/PND, cough. His last BM was 4 days prior to admission - this is not normal for him. The leg swelling became so severe that he has had a hard time bending down or walking. He has been weak. A couple of weeks ago he was noted to be hallucinating, but this stopped when his lyrica was discontinued. His son called his PCP's office due to progressively worsening swelling and the instructions were to bring Mr Rain to the hospital. On evaluation by the ED, the patient did not require supplemental oxygen. He was found to have severe bilateral pitting edema. His chemistry revealed a Cr of 10.8 with a carbon dioxide of 22.2 and a potassium of 4.2. His uric acid is 12.0. CXR showed no CHF. The patient verbalized that he did not want to be transferred to a different facility, was not interested in hemodialysis, and wanted to be DNR/DNI. A trial of IV furosemide was attempted and a johns catheter was ordered wiith >2,000 cc return out upon insertion. Follow up with PCP in 1 week. Home Meds and New Rx's Prescriptions: New Eliquis 2.5 mg Tablet 2.5 mg PO BID Qty: 60 0RF cyanocobalamin (vitamin B-12) [Vitamin B-12] 500 mcg Tablet 1,000 mcg PO DAILY Qty: 0 0RF calcium carbonate [Oyster Shell Calcium 500] 500 mg calcium (1,250 mg) Tablet 1.25 g PO BID Qty: 0 0RF lidocaine 5 % Adhesive Patch,Medicated 2 patch topical Q24H Qty: 30 0RF polyethylene glycol 3350 17 gram Powder In Packet 17 g PO DAILY Qty: 30 0RF potassium chloride [Klor-Con M20] 20 mEq Tablet,Er Particles/Crystals 40 meq PO BID Qty: 10 0RF Continued carvedilol 25 mg tablet 25 mg PO BID Qty: 180 3RF Rx Instructions: must administer with a meal/food oxycodone-acetaminophen 5-325 mg tablet 1 tab PO TID MDD 15 mg PRN (Reason: pain) Qty: 84 0RF docusate sodium [Dulcolax Stool Softener (dss)] 100 MG capsule 100 mg PO BID PRN allopurinol 100 mg tablet 100 mg PO DAILY Qty: 90 3RF prednisone 20 mg tablet 20 mg PO DAILY PRN (Reason: gout) Qty: 7 6RF tamsulosin 0.4 mg capsule 0.4 mg PO DAILY Qty: 30 0RF Held torsemide 20 mg tablet 20 mg PO BID Qty: 180 3RF Hold Instructions: Hold until PCP follow up Rx Instructions: a total of 30 mg of torsemide PO BID torsemide 10 mg tablet 10 mg PO BID Qty: 30 0RF Hold Instructions: Until PCP follow up Rx Instructions: Take with 20 mg dose Discontinued Eliquis 5 mg tablet 5 mg PO BID Qty: 180 3RF Rx Instructions: to prevent strokes with atrial fibrillation Discharge Instructions Instructions: Acute Kidney Injury (DC), Johns Catheter Placement and Care (DC) Stand Alone Forms: Nursing Discharge Form Referrals: Veto Schwab MD [ [facility] STAFF PHYSICIAN] - 09/03/22 2:00 pm (Follow up in 2-3 weeks.) Activity:: Activity as Tolerated Equipment/Supplies:: No Equipment Needed Diet:: Resume usual home diet Discharge Orders Discharge Orders: Discharge Order (Routine); Ordered 08/16/22 Ordered By: Fermin Cortés Other Ambulatory Orders: Basic Metabolic Panel (Routine) Timeframe: 1 Day Location: None Selected Ordered By: Fermin Cortés Complete Blood Count w/Diff (Routine) Timeframe: 1 Day Location: None Selected Ordered By: Fermin Cortés DS: Summary Time Spent with Patient providing and/or coordinating discharge services: Greater than 30 minutes Status at Discharge Functional status at discharge: independent ambulation Overall status at discharge: patient is progressing back to baseline Mental Status: mental status grossly normal Speech and Movement: speech and movement normal Mood: congruent mood Affect: normal affect Exam Narrative Exam Narrative: General: Pleasant elderly male sitting in chair. Conversant and pleasant. HEENT: MMM, sclera clear. Cardiovascular: irregularly irregular rhythm, no murmur Lungs: CTAB Gastrointestinal: soft, nontender, nondistended Genitourinary: has a johns - pink urine in bag Extremities: MAXIME wraps in place. Psych Mental Status: mental status grossly normal Speech and Movement: speech and movement normal Mood: congruent mood Affect: normal affect DS: Data Vitals/I&O Vitals and I&O: Vital Signs Temperature 37.1 C 08/16/22 07:34 Temperature Source Tympanic 08/16/22 07:34 Pulse 95 H 08/16/22 07:34 Pulse Rhythm Regular 08/16/22 10:58 Pulse 111 H 08/14/22 12:34 Respiratory Rate 17 08/16/22 07:34 Respiratory Effort Normal 08/16/22 10:58 Respiratory Depth Normal 08/16/22 10:58 Respiratory Pattern Normal 08/16/22 10:58 Blood Pressure 101/72 08/16/22 07:34 Blood Pressure Mean 74 08/14/22 12:34 Blood Pressure Position Supine 08/14/22 00:00 Pulse Oximetry 97 08/16/22 07:34 Oxygen Delivery Method Room Air 08/16/22 07:34 Oxygen Flow Rate 0 08/16/22 07:34 Pain Level 0 08/16/22 07:34 Comment forearm left 08/15/22 21:48 Intake & Output 08/15/22 08/16/22 08/16/22 23:59 11:59 23:59 Intake Total 540 / 540 Output Total 1800 / 3500 1400 / 2200 800 / 2200 Balance -1800 / -3500 -1400 / -1660 -260 / -1660 Weight 100.5 kg Intake: Oral 540 / 540 Output: Urine 1800 / 3500 1400 / 2200 800 / 2200 Other: Urine Color Ventura Bright Red Ventura Bright Red Urine Appearance Hematuria Hematuria Comment hematuria present like strawberry lemonade. bp stable Stool Size Moderate Stool Characteristics Formed Data Completed and Pending Labs on day of discharge: Labs from last 24 hours 08/16/22 08/16/22 08/16/22 09:45 05:42 05:42 WBC 13.46 H RBC 3.99 L Hgb 12.5 L Hct 38.2 L MCV 96 H MCH 31.3 MCHC 32.7 RDW 14.4 H Plt Count 182 MPV 10.3 Immature Gran % 0.4 Neutrophils % 80.3 Lymphocytes % 6.5 Monocytes % 9.2 Eosinophils % 3.1 Basophils % 0.5 Nucleated RBC % 0.0 Absolute Neutrophils 10.81 H Absolute Lymphocytes 0.87 L Absolute Monocytes 1.24 H Absolute Eosinophils 0.42 Absolute Basophils 0.07 Sodium Potassium Chloride Carbon Dioxide Anion Gap BUN Creatinine Est GFR (CKD-EPI 2020) Glucose Calcium Magnesium Total Bilirubin 1.2 H Conjugated Bilirubin 0.4 H AST 9 L ALT 8 L Alkaline Phosphatase 58 Total Protein 6.7 Albumin 3.4 Urine Color Yellow Urine Clarity Sl Cloudy Urine pH 7.0 Ur Specific [place] 1.015 Urine Protein 30 H Urine Ketones Negative Urine Blood Large H Urine Nitrite Negative Urine Bilirubin Negative Urine Urobilinogen 1.0 H Ur Leukocyte Esterase Negative Urine RBC >50 H Urine WBC Not Applicable Ur Epithelial Cells Not Applicable Urine Crystals Not Applicable Urine Bacteria Not Applicable Urine Mucus Not Applicable Ur Culture Indicated? No Urine Glucose Negative Hep Bs Antigen Hep Bs Antibody Hep Bs Antibody, Quant Hep B Core Total Ab Hepatitis C Antibody 08/16/22 08/15/22 08/14/22 05:42 16:15 05:45 WBC RBC Hgb Hct MCV MCH MCHC RDW Plt Count MPV Immature Gran % Neutrophils % Lymphocytes % Monocytes % Eosinophils % Basophils % Nucleated RBC % Absolute Neutrophils Absolute Lymphocytes Absolute Monocytes Absolute Eosinophils Absolute Basophils Sodium 143 140 Potassium 3.3 L 3.3 L Chloride 103 100 Carbon Dioxide 26.1 28.3 Anion Gap 13.9 H 11.7 H BUN 71 H 87 H* Creatinine 4.9 H* 6.1 H* Est GFR (CKD-EPI 2020) 11.23 8.63 Glucose 128 H 122 H Calcium 8.3 L 8.4 L Magnesium 1.7 L Total Bilirubin Conjugated Bilirubin AST ALT Alkaline Phosphatase Total Protein Albumin Urine Color Urine Clarity Urine pH Ur Specific [place] Urine Protein Urine Ketones Urine Blood Urine Nitrite Urine Bilirubin Urine Urobilinogen Ur Leukocyte Esterase Urine RBC Urine WBC Ur Epithelial Cells Urine Crystals Urine Bacteria Urine Mucus Ur Culture Indicated? Urine Glucose Hep Bs Antigen Negative Hep Bs Antibody Negative Hep Bs Antibody, Quant <3.1 Hep B Core Total Ab Negative Hepatitis C Antibody Negative PFSH All Active Problems Gross hematuria (Acute) Lethargy (Acute) Discharge planning issues (Acute) DVT prophylaxis (Acute) Urinary retention (Acute) MEDARDO (acute kidney injury) (Acute) Hyperbilirubinemia (Acute) Hypocalcemia (Acute) Elevated uric acid in blood (Acute) High anion gap metabolic acidosis (Acute) Anemia (Chronic) Acute renal failure due to urinary obstruction (Acute) Post herpetic neuralgia (Acute) Toe swelling (Acute) Atrial fibrillation with RVR (Acute) Mitral regurgitation (Chronic) Hypertension (Chronic) Cardiomyopathy (Acute) Osteoarthritis of knee (Acute) Tobacco dependence syndrome (Acute 09/17/11) Unspecified essential hypertension (Chronic 03/11/93) 1993 Primary osteoarthritis of both knees (Chronic) Plan is to continue [facility] supplem follow-up with me in 6 months unless there is some intercurrent worsening of his symptomatology. Entation of both knees. The patient inquires whether or not a brace would be of help. I think a simple elastic knee sleeve such as a copper fit brace is most suitable to him. I would recommend an extra large size. 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), sciatica , djd pain (also [place]); no NSAID's due to GI bleed (2015) Osteoarthritis of knee (Chronic) LEFT PATRIZIA; INJ DREISBACH; DJD Hyperlipidemia (Chronic 11/09/00) risk 25% 11/2000, patrizia smoking, low HDL; goal LDL<100 Esophagitis determined by endoscopy (Chronic 03/09/16) EGD 02/29/16; Melena on Apixaban Chronic anticoagulation (Chronic 10/15/16) Apixaban Atrial fibrillation (Chronic 12/10/11) H/O EPISODES LIKELY FOR 2 YRS; EF 52%, NL TSH; Elzbieta; noted 12/10/11 office, Apixaban 2015; EF 60% 11/2014 ECHO Surgical History egd (02/29/16) [facility] Yariel H/O umbilical hernia repair Hx of appendectomy S/P tonsillectomy Family History Mother , fluid in lungs at age 57. Heart disease CHF Sister Stroke Social History Smoking/Tobacco Use Status: Former Tobacco Use Pack-years: 120 Tobacco: How many years used: 64 Smoking risk assessment performed?: Yes Alcohol Intake: never Drug use: Never Adopted: No Caregiver/Support person: No Foster care: No Household members: spouse Housing: apartment Number of Children: 5 number of grandchildren: 11 Communication Needs: None Education Level: college Do you need help understanding health information?: Never current occupation: [employer] Pets and animals: Yes Pets and animals: dog(s) Sexually active: No Do you think of yourself as: straight/heterosexual Current gender identity: male What is your relationship status?: How often do you talk on the phone with friends or family?: three or more times per week How often do you get together with friends or relatives?: never How often do you attend worship or alevism services?: decline to answer Do you belong to any clubs or organized social groups?: no Panel score (0-1 are the most socially isolated patients): 2 What type of physical activity do you participate in: none Seatbelt use: sometimes Drive intox or ride w/intox public transit bus driver: No Water heater temp set <120 deg: Yes Working smoke detector in home: Yes Fire extinguisher in home: Yes Carbon monox detector in home: Yes Do you feel safe at home: Yes Time Spent with Patient Time Spent with Patient: 45-69 minutes Time was spent: preparing to see the patient(eg.review tests), obtaining and/or reviewing separately otained hiistory, ordering medications,tests, procedures, referring, communicating with other health critical care rn, indepentently interpreting results, counseling the patient and care coordination
--- NOTE | 2022-08-16 14:42 | CHAPLAIN ---
Jacob was resting in bed when I stopped in. His was visiting him. His told me about coming to the ED and being told he might not survive, that was three days ago. He said he was glad he came to the ED when he did, and added that he's been receiving good care. Jacob was kenya pleasant and easily engaged in a conversation. He hopes to be going home soon, possibly today. Jacob mentioned that his sister in law is Jelly Ramos, who was the branch assistant of [employer] for many years.
--- NOTE | 2022-08-16 16:56 | PT.INDS ---
Date of service: 08/16/22 Time of Service: 11:50 PT Notes Visit Reasons: MEDARDO, Likely Acute Cardiorenal Syndrome Physical Therapy Inpatient Discharge Summary Date: 08/16/2022 Dates of service: 08/14/2022 through 08/16/2022 Referring Doctor:? Ivana Lucero,? PT Orders: PT CONSULT: Limited ability Precautions: Fall. Standard. Activity as tolerated. Patient Profile/Admitting Diagnosis:? Jacob is an 82-year-old male who was admitted to the ED on 08/13/2022 due to bilateral lower extremity edema that was worsening over the past 2 weeks.? Patient is admitted for management of acute kidney injury,? urinary retention,? high anion gap metabolic acidosis, cardiomyopathy hyperbilirubinemia, elevated uric acid in blood, leukocytosis, anemia, and atrial fibrillation. PMHX: All Active Problems?(Updated 08/13/22 @ 17:13 by Ivana Lucero MD) Discharge planning issues (Acute) DVT prophylaxis (Acute) Urinary retention (Acute) MEDARDO (acute kidney injury) (Acute) Hyperbilirubinemia (Acute) Hypocalcemia (Acute) Elevated uric acid in blood (Acute) High anion gap metabolic acidosis (Acute) Anemia (Chronic) Leukocytosis (Acute) Acute renal failure due to urinary obstruction (Acute) Congestive heart failure (Chronic) Post herpetic neuralgia (Acute) Toe swelling (Acute) Atrial fibrillation with RVR (Acute) Mitral regurgitation (Chronic) Hypertension (Chronic) Cardiomyopathy (Acute) Osteoarthritis of knee (Acute) Tobacco dependence syndrome (Acute 09/17/11) Unspecified essential hypertension (Chronic 03/11/93) 1993 Primary osteoarthritis of both knees (Chronic) Plan is to continue Visco supplem follow-up with me in 6 months unless there is some intercurrent worsening of his symptomatology.? Entation of? both knees.? The patient inquires whether or not a brace would be of help.? I think a simple elastic knee sleeve such as a copper fit brace is most? suitable to him.? I would recommend an extra large size.? He understands that he needs to avoid using the brace at nighttime so it does not cause? 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), sciatica 07, djd pain (also Dreisbach); no NSAID's due to GI bleed (2015) Osteoarthritis of knee (Chronic) LEFT PATRIZIA; INJ DREISBACH; DJD Hyperlipidemia (Chronic 11/09/00) risk 25% 11/2000, patrizia smoking, low HDL; goal LDL<100 Esophagitis determined by endoscopy (Chronic 03/09/16) EGD 02/29/16; Melena on Apixaban Chronic anticoagulation (Chronic 10/15/16) Apixaban Atrial fibrillation (Chronic 12/10/11) H/O EPISODES LIKELY FOR 2 YRS; EF 52%, NL TSH; [place]itzman; noted 12/10/11 office, Apixaban 2015; EF 60% 11/2014 ECHO Surgical History?(Updated 08/13/22 @ 17:13 by Ivana Lucero MD) egd (02/29/16) [place] Yariel H/O umbilical hernia repair Hx of appendectomy S/P tonsillectomy Social History/Home Situation: Lives with in a handicap-accessible residence.? Uses a front-wheeled walker for baseline mobility indoors and outdoors.? 2 falls in the past year.? Equipment Owned/DME: 4WW,? FWW Subjective: Hopeful that he could go home today. Objective: General Observation: Supine in bed.? Telemetry monitoring in place.? Urine in Goyal bag sanguinous.? Swelling in B legs and feet noted. Mental Status: Alert and oriented as to person, place, time, and purpose. Able to pay attention, focus, and respond appropriately. Pain: Denies Vital Signs: WNL as closely monitored via telemetry ROM: Right Upper Extremity: ? Shoulder Flexion WFL. Shoulder abduction WFL. Elbow flexion WFL. Wrist flexion WFL. Functional opening and closing of hand WFL. Left Upper Extremity:? Shoulder Flexion WFL. Shoulder abduction WFL. Elbow flexion WFL. Wrist flexion WFL. Functional opening and closing of hand WFL. Right Lower Extremity: Hip flexion WFL. Hip abduction WFL. Knee flexion WFL. Ankle dorsiflexion WFL. Ankle plantarflexion WFL. Left Lower Extremity: Hip flexion WFL. Hip abduction WFL. Knee flexion WFL. Ankle dorsiflexion WFL. Ankle plantarflexion WFL. Strength: Right Upper Extremity: Shoulder flexors 4-/5. Shoulder abductors 4-/5. Elbow flexors 4-/5. Elbow extensors 4-/5. Wheel Inspector strong. Left Upper Extremity: Shoulder flexors 4-/5. Shoulder abductors 4-/5. Elbow flexors 4-/5. Elbow extensors 4-/5. Wheel Inspector strong. Right Lower Extremity: Hip flexors 4-/5. Hip abductors 4-/5. Knee flexors 4-/5. Knee extensors 4-/5. Ankle dorsiflexors 4-/5. Ankle plantarflexors 4-/5. Left Lower Extremity: Hip flexors 4-/5. Hip abductors 4-/5. Knee flexors 4-/5. Knee extensors 4-/5. Ankle dorsiflexors 4-/5. Ankle plantarflexors 4-/5. Bed Mobility/Transfers: Supine to sit independent Sit to stand independent with FWW Stand to sit independent with FWW Gait: Instructed patient with level surface ambulation of 100 feet requiring front-wheeled walker with supervision. No LOB.? No SOB.? Balance: Static Sitting: Normal Dynamic Sitting: Normal Static Standing: Fair Dynamic Standing: Fair Special Tests: -Mobility Limitations Standardized Measure [facility] 6 clicks Basic Mobility Inpatient Short Form: Raw Score: 23? CMS Score: 11% deficit? ? ? -30-second chair rise score of 5x indicating B LE weakness -4-stage balance test: Unable to maintain all 4 positions for 10 seconds indicating fall risk without AD Assessment: Patient presents with clinical signs and symptoms consistent with current/admitting diagnoses that have resulted to mobility limitations, gait instability, generalized weakness, and overall ADL decline as demonstrated by the following impairment level findings: 1.? Decreased strength to B UE/LE major muscle groups 2.? Impaired sitting/standing balance 3.? Impaired activity tolerance 4.? Swelling in B LE Impairments are contributing to the following functional limitations: 1.? Decline in bed mobility skills 2.? Decline in transfer skills 3.? Difficulty with ambulation without assistive device and physical assistance 4.? Increased completion time for mobility ADL performance 5.? Increased risk for falls 6.? Difficulty with managing steps alone safely Goals: Goals X1 week 1. Supine-Sit independent MET 2. Sit-Supine independent MET 3. Sit-Stand independent MET 4. Stand-Sit independent with FWW MET 5. Bed-Chair independent with FWW MET 6. Chair-Bed independent with FWW MET 7. Independent gait on level surface with use of FWW for at least 200 feet without report of pain nor dyspnea NOT MET 8. Independent with home exercise program NOT MET 9. Good static and dynamic standing balance/tolerance NOT MET DISCHARGE RECOMMENDATIONS: [] ? Home with no services [] [X] ? Home with services.? Patient will benefit from home health PT services in order to progress mobility level using least restrictive assistive ambulatory device, assess home safety, identify additional equipment needs, and establish a functional maintenance program that will increase ability of patient to remain at home. [] ? Home with outpatient PT [] [] ? SNF for continued rehabilitation [] [] ? [facility] [] [] ? SNF versus LTC based on ability to participate and progress [] TREATMENT CODE/TIME: 72314 x 16 minutes beginning at 11:50 AM. Thank you for the opportunity to participate in the care of this patient. Rabia Pablo PT, DPT, CLT [facility] [place], [place]
== END 2022-08-16 14:43 | disposition home or self-care (01) | DRG 683 ==
LOC: ER 13:27 → ICU 16:10 → MS 08-14 21:02
PROVIDERS: Family Medicine; Admitting Provider Internal Medicine; Emergency Provider Physician Assistant; PCP Family Medicine; Visit Provider Internal Medicine
DX: N17.9 Acute kidney failure, unspecified (principal); B02.29 Other postherpetic nervous system involvement; E87.29 Other acidosis; I42.9 Cardiomyopathy, unspecified; I48.20 Chronic atrial fibrillation, unspecified; I13.0 Hypertensive heart and chronic kidney disease with heart failure and stage 1 through stage 4 chronic kidney disease, or unspecified chronic kidney disease; N32.0 Bladder-neck obstruction; R33.9 Retention of urine, unspecified; I50.9 Heart failure, unspecified; E80.6 Other disorders of bilirubin metabolism; E83.51 Hypocalcemia; D72.829 Elevated white blood cell count, unspecified; D64.9 Anemia, unspecified; R53.83 Other fatigue; I45.10 Unspecified right bundle-branch block; Z79.01 Long term (current) use of anticoagulants; I87.2 Venous insufficiency (chronic) (peripheral); Z66 Do not resuscitate; I34.0 Nonrheumatic mitral (valve) insufficiency; Z87.891 Personal history of nicotine dependence; E78.5 Hyperlipidemia, unspecified; M17.0 Bilateral primary osteoarthritis of knee; M10.9 Gout, unspecified; N40.1 Benign prostatic hyperplasia with lower urinary tract symptoms; Z79.891 Long term (current) use of opiate analgesic; R31.0 Gross hematuria; N21.0 Calculus in bladder; R60.0 Localized edema; E53.8 Deficiency of other specified B group vitamins; N18.30 Chronic kidney disease, stage 3 unspecified
CPT/HCPCS: 36415; 80048; 80053; 80076; 82550; 82805; 84145; 86704; 86706; 86803; 86850; 86900; 86901; 87340; 93005; 93306; 93308; 97110; 97116; 97162; 97530; 99222; 99231; 71046; 74176; 81003; 81015; 82565; 82607; 82728; 82746; 83540; 83550; 83605; 83735; 83880; 84100; 84439; 84443; 84484; 84540; 84550; 85025; 87086; 93010; 93970; 99232; 99233; 99239; 99291; J1940; J3420; J3490

== ENCOUNTER → 2022-08-14 07:34 | Outpatient (BNVA) | payer MEDICARE, SELFPAY | PROVIDERS: PCP Family Medicine; Referring Provider Family Medicine; Visit Provider Urology ==

== ENCOUNTER 2022-08-18 15:57 | Outpatient (REF) | payer MEDICARE, SELFPAY ==
[2022-08-18 16:16] LABS: Abs Immature Grans 0.09 10^3/uL (0.0-0.06); Absolute Basophil Count 0.03 10^3/uL (0.0-0.2); Absolute Eosinophil Count 0.07 10^3/uL (0.0-0.7); Absolute Lymphocyte Count 0.64 10^3/uL (1.2-3.4); Absolute Monocyte Count 1.81 10^3/uL (0.1-0.8); Absolute Neutrophil Count 14.29 10^3/uL (1.2-6.7); Basophils % 0.2; Eosinophils % 0.4; HCT 35.8 % (40.0-50.0); HGB 11.9 g/dL (13.5-17.5); Immature Grans % 0.5; Lymphocytes % 3.8; MCH 31.7 pg (27.0-33.0); MCHC 33.2 % (32.0-36.0); MCV 96 fL (80-95); MPV 10.6 fL (8.0-11.0); Monocytes % 10.7; Neutrophils % 84.4; Platelet Count 177 10^3/uL (130-400); RBC 3.75 10^6/uL (4.36-5.78); RDW 14.2 % (11.8-14.1); WBC 16.93 10^3/uL (4.4-10.8)
[2022-08-18 16:21] LABS: Anion Gap 10.9 mmol/L (3-11); BUN 40 mg/dL (7-18); CO2 28.1 mmol/L (21.0-32.0); CREATININE 2.5 mg/dL (0.70-1.30); Calcium 7.7 mg/dL (8.5-10.1); Chloride 102 mmol/L (98-107); Estimated GFR 25.18 (mL/min/1.73m2); Glucose 150 mg/dL (74-106); Sodium 141 mmol/L (136-145)
[2022-08-18 16:44] LABS: Potassium 2.8 mmol/L (3.5-5.1)
[2022-08-18 16:47] LABS: Diff Comment Diff Reviewed; RBC Morphology Normal
== END 2022-08-18 15:58 | disposition home or self-care (01) ==
LOC: LBN 15:57
PROVIDERS: PCP Family Medicine; Visit Provider Family Medicine
DX: D72.829 Elevated white blood cell count, unspecified (principal); N17.9 Acute kidney failure, unspecified
CPT/HCPCS: 80048; 85025

== ENCOUNTER 2022-08-23 13:05 | Outpatient (REF) | payer MEDICARE, SELFPAY ==
[2022-08-23 13:29] LABS: Anion Gap 11.8 mmol/L (3-11); BUN 47 mg/dL (7-18); CO2 26.2 mmol/L (21.0-32.0); CREATININE 1.9 mg/dL (0.70-1.30); Calcium 8.4 mg/dL (8.5-10.1); Chloride 104 mmol/L (98-107); Glucose 114 mg/dL (74-106); Potassium 4.8 mmol/L (3.5-5.1); Sodium 142 mmol/L (136-145)
== END 2022-08-23 13:06 | disposition home or self-care (01) ==
LOC: LBN 13:05
PROVIDERS: PCP Family Medicine; Visit Provider Family Medicine
DX: I50.9 Heart failure, unspecified (principal); N18.30 Chronic kidney disease, stage 3 unspecified
CPT/HCPCS: 80048

== ENCOUNTER → 2022-08-23 14:42 | Outpatient (BNVA) | payer MEDICARE, SELFPAY | PROVIDERS: PCP Family Medicine; Referring Provider Family Medicine; Visit Provider Urology | DX: N17.9 Acute kidney failure, unspecified (principal); N13.9 Obstructive and reflux uropathy, unspecified; R33.9 Retention of urine, unspecified | CPT/HCPCS: 99214 ==

== ENCOUNTER 2022-09-10 13:30 | Outpatient (REF) | payer MEDICARE, SELFPAY ==
[2022-09-10 12:18] LABS: Anion Gap 10.5 mmol/L (3-11); BUN 20 mg/dL (7-18); CO2 25.5 mmol/L (21.0-32.0); CREATININE 1.7 mg/dL (0.70-1.30); Calcium 8.4 mg/dL (8.5-10.1); Chloride 103 mmol/L (98-107); Glucose 80 mg/dL (74-106); Potassium 4.2 mmol/L (3.5-5.1); Sodium 139 mmol/L (136-145)
== END 2022-09-10 13:31 | disposition home or self-care (01) ==
LOC: LBN 13:30
PROVIDERS: PCP Family Medicine; Visit Provider Family Medicine
DX: I50.32 Chronic diastolic (congestive) heart failure (principal)
CPT/HCPCS: 80048

== ENCOUNTER → 2022-10-16 08:44 | Outpatient (BNVA) | payer MEDICARE, SELFPAY | PROVIDERS: PCP Family Medicine; Referring Provider Family Medicine; Visit Provider Urology | DX: N13.9 Obstructive and reflux uropathy, unspecified (principal); N17.9 Acute kidney failure, unspecified; R33.9 Retention of urine, unspecified; I10 Essential (primary) hypertension | CPT/HCPCS: 99213 ==

== ENCOUNTER → 2022-11-09 10:47 | Outpatient (BNVA) | payer MEDICARE, SELFPAY | PROVIDERS: PCP Family Medicine; Referring Provider Family Medicine; Visit Provider Internal Medicine Cardiovascular Disease | DX: I48.21 Permanent atrial fibrillation (principal); Z79.01 Long term (current) use of anticoagulants; R33.9 Retention of urine, unspecified; I10 Essential (primary) hypertension | CPT/HCPCS: 99214 ==

== ENCOUNTER 2022-11-27 22:52 | Outpatient (REF) | payer MEDICARE, SELFPAY ==
[2022-11-27 15:30] LABS: Anion Gap 10.7 mmol/L (3-11); BUN 16 mg/dL (7-18); CO2 24.3 mmol/L (21.0-32.0); CREATININE 1.2 mg/dL (0.70-1.30); Calcium 9.2 mg/dL (8.5-10.1); Chloride 105 mmol/L (98-107); Estimated GFR 60.75 (mL/min/1.73m2); Glucose 141 mg/dL (74-106); Potassium 3.8 mmol/L (3.5-5.1); Sodium 140 mmol/L (136-145)
== END 2022-11-27 22:53 | disposition home or self-care (01) ==
LOC: LBN 22:52
PROVIDERS: PCP Family Medicine; Visit Provider Family Medicine
DX: I10 Essential (primary) hypertension (principal)
CPT/HCPCS: 80048

== ENCOUNTER 2023-03-07 10:51 | Outpatient (CLI) | payer MEDICARE, SELFPAY ==
--- NOTE | 2023-03-07 10:45 | RT.EKG_ITS ---
APPROVED REPORT Exam: Resting ECG Reason for Exam: baseline Patient Location: O HR:101 bpm ECG Measurements Heart Rate 101 AXIS NM [id number] P [id number] QRSd 159 QRS -57 QT 412 T 10 QTc 535 Conclusion Atrial fibrillation...V-rate 74-135, irreg A-activity Right bundle branch block...QRSd>120, terminal axis(90,270) Baseline wander in lead(s) V1 I have reviewed and interpreted ECG and agree with software generated interpretation.
== END 2023-03-07 10:52 | disposition home or self-care (01) ==
LOC: DI.CARD 10:52
PROVIDERS: PCP Family Medicine; Referring Provider Family Medicine; Visit Provider Internal Medicine Interventional Cardiology
DX: I42.9 Cardiomyopathy, unspecified (principal)
CPT/HCPCS: 93010

== ENCOUNTER → 2023-03-07 10:51 | Outpatient (BNVA) | payer MEDICARE, SELFPAY | PROVIDERS: PCP Family Medicine; Referring Provider Family Medicine; Visit Provider Internal Medicine Interventional Cardiology | DX: I48.21 Permanent atrial fibrillation (principal); R33.8 Other retention of urine; I42.9 Cardiomyopathy, unspecified; Z01.810 Encounter for preprocedural cardiovascular examination; Z79.01 Long term (current) use of anticoagulants | CPT/HCPCS: 93005; 99213 ==

== ENCOUNTER 2023-04-29 18:12 | Outpatient (REF) | payer MEDICARE, SELFPAY | END 2023-04-29 18:13 | disposition home or self-care (01) | LOC: LBN 18:12 | PROVIDERS: PCP Family Medicine; Referring Provider Urology; Visit Provider Urology | DX: R33.9 Retention of urine, unspecified (principal); N40.0 Benign prostatic hyperplasia without lower urinary tract symptoms | CPT/HCPCS: 87077; 87086; 87186 ==

== ENCOUNTER → 2023-05-10 09:33 | Outpatient (BNVA) | payer MEDICARE, SELFPAY | PROVIDERS: PCP Family Medicine; Referring Provider Family Medicine; Visit Provider Internal Medicine Cardiovascular Disease | DX: Z01.810 Encounter for preprocedural cardiovascular examination (principal); I48.21 Permanent atrial fibrillation; R33.8 Other retention of urine; Z79.01 Long term (current) use of anticoagulants | CPT/HCPCS: 99213 ==

== ENCOUNTER 2024-06-29 08:33 | Outpatient (CLI) | payer MEDICARE, SELFPAY ==
--- NOTE | 2024-06-29 08:30 | RT.EKG_ITS ---
APPROVED REPORT Exam: Resting ECG Reason for Exam: afib Patient Location: O HR:94 bpm ECG Measurements Heart Rate 94 AXIS AR [id number] P [id number] QRSd 145 QRS -59 QT 397 T -9 QTc 497 Conclusion Atrial fibrillation...V-rate 70-122, irreg A-activity Right bundle branch block...QRSd>120, terminal axis(90,270)
== END 2024-06-29 08:34 | disposition home or self-care (01) ==
LOC: DI.CARD 08:33
PROVIDERS: PCP Family Medicine; Visit Provider Registered Nurse
DX: I48.91 Unspecified atrial fibrillation (principal); I45.10 Unspecified right bundle-branch block
CPT/HCPCS: 93010

== ENCOUNTER → 2024-06-29 08:56 | Outpatient (BNVA) | payer MEDICARE, SELFPAY | PROVIDERS: PCP Family Medicine; Visit Provider Registered Nurse ==

== ENCOUNTER 2024-06-29 10:02 | Outpatient (CLI) | payer MEDICARE, SELFPAY ==
[2024-06-29 10:55] LABS: BUN 19 mg/dL (7-18); CREATININE 1.6 mg/dL (0.70-1.30); Calcium 9.4 mg/dL (8.5-10.1); Chloride 104 mmol/L (98-107); Estimated GFR 42.75 (mL/min/1.73m2); Glucose 108 mg/dL (74-106); Potassium 3.8 mmol/L (3.5-5.1); Sodium 141 mmol/L (136-145)
== END 2024-06-29 10:03 | disposition home or self-care (01) ==
PROVIDERS: PCP Family Medicine; Visit Provider Family Medicine
DX: I10 Essential (primary) hypertension (principal)
CPT/HCPCS: 36415; 80048; 93005; 99214

== ENCOUNTER 2024-09-18 13:10 | Outpatient (CLI) | payer MEDICARE, SELFPAY | END 2024-09-18 13:11 | disposition home or self-care (01) | PROVIDERS: PCP Family Medicine; Visit Provider Family Medicine | DX: Z79.891 Long term (current) use of opiate analgesic (principal) | CPT/HCPCS: 36415; 80307 ==

== ENCOUNTER 2025-01-27 10:54 | Outpatient (CLI) | payer MEDICARE, SELFPAY ==
[2025-01-27 12:39] LABS: Uric Acid 6.6 mg/dL (3.7-9.2)
== END 2025-01-27 10:55 | disposition home or self-care (01) ==
LOC: LBO 10:58
PROVIDERS: PCP Family Medicine; Visit Provider Family Medicine
DX: M10.9 Gout, unspecified (principal)
CPT/HCPCS: 36415; 84550